=== PATIENT | male | born 1945 | race Hispanic/Latino ===

== ENCOUNTER 2017-01-24 02:53 | Inpatient (IN) | payer MEDICARE ==
[2017-01-24] MEDS ORDERED: BABY ASPIRIN ONE (03:00)
[2017-01-24] MEDS ORDERED: MORPHINE IV ONE (03:11)
[2017-01-24] MEDS ORDERED: NACL 0.9% 1000 ML 1,000 ML IV ONE (03:11)
[2017-01-24] MEDS ORDERED: HEPARIN 10,000 UNITS/10 ML IV ONE (03:11)
[2017-01-24] MEDS ORDERED: PLAVIX PO ONE (03:14)
[2017-01-24 03:21] LABS: INR 0.97 (0.87-1.13)
[2017-01-24 03:22] LABS: Partial Thromboplastin Time 24.9 Sec. (24.2-36.6)
[2017-01-24 03:25] LABS: Hematocrit 41.1 % (35.5-45.6); Mean Corpuscular HGB Conc 34 % (32-34); Mean Corpuscular Hemoglobin 30 pg (28-32); Mean Corpuscular Volume 87 fl (84-94); Platelet Count 290 K/mm3 (140-440); Red Blood Count 4.75 M/mm3 (3.65-5.03); Red Cell Distribution Width 14.6 % (13.2-15.2)
[2017-01-24 03:26] LABS: White Blood Count 21.4 K/mm3 (4.5-11.0)
[2017-01-24] MEDS ORDERED: XYLOCAINE 2% INFILTRATI ONE (03:33)
[2017-01-24] MEDS ORDERED: CALAN ONE (03:33)
[2017-01-24] MEDS ORDERED: NITROGLYCERIN SYRINGE 3 ML ONE (03:33)
[2017-01-24] MEDS ORDERED: HEPARIN/NS 5000 UNIT/500ML(CATH LAB) 1,000 ML IR ONE (03:33)
[2017-01-24] MEDS ORDERED: HEPARIN 10,000 UNITS/10 ML ONE ×2 (03:33→04:45)
[2017-01-24] MEDS ORDERED: AGGRASTAT DRIP (12.5 MG/250 ML) 0 MCG/0 ML BAG IV ONE (03:34)
[2017-01-24] MEDS ORDERED: ATROPINE 0.1% (CARDIAC) ONE (03:34)
[2017-01-24] MEDS ORDERED: VERSED ONE (03:34)
[2017-01-24] MEDS ORDERED: NACL 0.9% 1000 ML 1,000 ML ONE (03:34)
[2017-01-24] MEDS: SUBLIMAZE ONE ×2 (03:51→04:17)
[2017-01-24] MEDS ORDERED: INTROPIN DRIP 800 MG/D5W 250 ML 800 MG/250 ML BAG IV ONE (04:07)
--- NOTE | 2017-01-24 04:10 | Emergency Department Report ---
ED Chest Pain HPI - General Chief Complaint: Chest Pain Stated Complaint: CHEST PAIN Time Seen by Provider: 01/24/17 02:57 Source: patient, EMS Mode of arrival: Stretcher Limitations: No Limitations - History of Present Illness Initial Comments: Patient is a 71-year-old male who presents with chest pain patient states that chest pain started 45 minutes ago. He states that it's a pressure type pain located in left side of his chest it is severe at 10 out 10 and it radiates to his left arm into his jaw. Patient states that he was sitting down when the chest pain started. Patient is also slightly short of breath as well. Patient states that this chest pain is similar to his heart attacks in the past. Patient denies nausea or vomiting. Patient states that he has not taken his aspirin for about 1 week. But he has been taking his Plavix. Patient does not have any other symptoms other than the chest pain. Severity scale (0 -10): 8 - Related Data Home Medications Medication Instructions Recorded Confirmed Last Taken Ondansetron [Zofran Odt] 4 mg PO QDAY 12/06/16 12/06/16 12/05/16 Previous Rx's Medication Instructions Recorded Last Taken Type Aspirin EC [Aspirin Enteric Coated 81 mg PO QDAY #30 tablet. 12/15/16 Unknown Rx TAB] AtorvaSTATin [Lipitor] 40 mg PO QHS #30 tablet 12/15/16 Unknown Rx Clopidogrel [Plavix] 75 mg PO QDAY #30 tablet 12/15/16 Unknown Rx Furosemide [Lasix] 20 mg PO QDAY #30 tablet 12/15/16 Unknown Rx Losartan [Cozaar] 100 mg PO QDAY 30 Days 12/15/16 Unknown Rx Metoprolol [Lopressor TAB] 50 mg PO TID 30 Days 12/15/16 Unknown Rx Spironolactone [Aldactone] 25 mg PO QDAY #30 tablet 12/15/16 Unknown Rx amLODIPine [Norvasc] 10 mg PO DAILY #30 tablet 12/15/16 Unknown Rx oxyCODONE /ACETAMINOPHEN [Percocet 1 tab PO Q6HR PRN #20 tablet 12/15/16 Unknown Rx 5/325] Allergies Allergy/AdvReac Type Severity Reaction Status Date / Time No Known Allergies Allergy Verified 12/06/16 04:24 Heart Score - HEART Score History: Highly suspicious EKG: Significant ST-depression Age: > 65 Risk factors: > 3 risk factors or hx of atherosclerotic disease Troponin: 1-3x normal limit HEART Score: 9 ED Review of Systems ROS: Stated complaint: CHEST PAIN Other details as noted in HPI Constitutional: denies: chills, fever Eyes: denies: eye pain, eye discharge, vision change ENT: denies: ear pain, throat pain Respiratory: shortness of breath. denies: cough, wheezing Cardiovascular: chest pain Endocrine: no symptoms reported Gastrointestinal: denies: abdominal pain, nausea, diarrhea Genitourinary: denies: urgency, dysuria Musculoskeletal: denies: back pain, joint swelling, arthralgia Skin: denies: rash, lesions Neurological: denies: headache, weakness, paresthesias Psychiatric: denies: anxiety, depression Hematological/Lymphatic: denies: easy bleeding, easy bruising ED Past Medical Hx - Past Medical History Previous Medical History?: Yes Hx Hypertension: Yes Hx COPD: Yes Hx HIV: No - Surgical History Past Surgical History?: Yes Additional Surgical History: colon surgery 3-4 weeks ago per pt. - Social History Smoking Status: Former Smoker Substance Use Type: Marijuana - Medications Home Medications: Home Medications Medication Instructions Recorded Confirmed Last Taken Type Ondansetron [Zofran Odt] 4 mg PO QDAY 12/06/16 12/06/16 12/05/16 History Aspirin EC [Aspirin Enteric Coated 81 mg PO QDAY #30 tablet. 12/15/16 Unknown Rx TAB] AtorvaSTATin [Lipitor] 40 mg PO QHS #30 tablet 12/15/16 Unknown Rx Clopidogrel [Plavix] 75 mg PO QDAY #30 tablet 12/15/16 Unknown Rx Furosemide [Lasix] 20 mg PO QDAY #30 tablet 12/15/16 Unknown Rx Losartan [Cozaar] 100 mg PO QDAY 30 Days 12/15/16 Unknown Rx Metoprolol [Lopressor TAB] 50 mg PO TID 30 Days 12/15/16 Unknown Rx Spironolactone [Aldactone] 25 mg PO QDAY #30 tablet 12/15/16 Unknown Rx amLODIPine [Norvasc] 10 mg PO DAILY #30 tablet 12/15/16 Unknown Rx oxyCODONE /ACETAMINOPHEN [Percocet 1 tab PO Q6HR PRN #20 tablet 12/15/16 Unknown Rx 5/325] ED Physical Exam - General Limitations: No Limitations General appearance: in distress - Head Head exam: Present: atraumatic, normocephalic - Eye Eye exam: Present: normal appearance - ENT ENT exam: Present: mucous membranes moist - Neck Neck exam: Present: normal inspection - Respiratory Respiratory exam: Present: normal lung sounds bilaterally. Absent: respiratory distress - Cardiovascular Cardiovascular Exam: Present: systolic murmur, other (diminished heart sounds diminished heart sounds) - GI/Abdominal GI/Abdominal exam: Present: soft - Rectal Rectal exam: Present: deferred - Extremities Exam Extremities exam: Present: normal inspection - Neurological Exam Neurological exam: Present: alert, oriented X3, CN II-XII intact - Psychiatric Psychiatric exam: Present: normal affect - Skin Skin exam: Present: warm, dry ED Course Vital Signs 01/24/17 01/24/17 01/24/17 03:09 03:17 03:55 Temperature 98.8 F 98.4 F Pulse Rate 71 Respiratory 18 18 20 Rate Blood Pressure 133/61 O2 Sat by Pulse 99 99 Oximetry - Reevaluation(s) Reevaluation #1: 01/24/17 03:14 Evaluated patient water morphine for his severe chest pain I will also give IV heparin and lobe patient with Plavix. - Consultations Consultation #1: 01/24/17 04:15 Discussed with city carrier assistant micro paleontologist Dr. Stroud patient's EKG shows significant ST segment elevation and needs V4 V5 and V6 and ST depressions and ST depressions in leads 2 and 3 ZHENG score - Zheng Score Age > 65: (1) Yes Aspirin use within the Past 7 Days: (1) Yes 3 or more CAD Risk Factors: (1) Yes 2 or more Angina events in past 24 hrs: (0) No Known CAD with more than 50% Stenosis: (1) Yes Elevated Cardiac Markers: (0) No ST Deviation Greater than 0.5mm: (1) Yes ZHENG Score: 5 ED Medical Decision Making - Lab Data Result diagrams: 01/24/17 03:11 01/24/17 03:11 Lab Results 01/24/17 01/24/17 01/24/17 Range/Units 02:55 03:11 03:11 WBC 21.4 H (4.5-11.0) K/mm3 RBC 4.75 (3.65-5.03) M/mm3 Hgb 14.0 (11.8-15.2) gm/dl Hct 41.1 (35.5-45.6) % MCV 87 (84-94) fl MCH 30 (28-32) pg MCHC 34 (32-34) % RDW 14.6 (13.2-15.2) % Plt Count 290 (140-440) K/mm3 PT 12.8 (12.2-14.9) Sec. INR 0.97 (0.87-1.13) APTT 24.9 (24.2-36.6) Sec. Blood Type B POSITIVE Antibody Screen Negative - EKG Data -: EKG Interpreted by Me - Medical Decision Making Chief medical diagnosis STEMI Differential diagnosis: Non-STEMI, Unstable angina Well CBC, CMP, troponin, plavix and heparin Patient is having an STEMI patient has a life-threatening condition he will require IV heparin. Discussed with city carrier assistant Critical Care Time: Yes Critical care time in (mins) excluding proc time.: 30 Critical care attestation.: If time is entered above; I have spent that time in minutes in the direct care of this critically ill patient, excluding procedure time. I have spent 20 minutes at patient's bedside I have spent 5 minutes with business travel consultant I have spent 5 minutes looking over patient's old medical records ED Disposition Clinical Impression: STEMI (ST elevation myocardial infarction) Qualifiers: Involved coronary artery: unspecified coronary artery Qualified Code(s): I21.3 - ST elevation (STEMI) myocardial infarction of unspecified site Chest pain Qualifiers: Chest pain type: chest pain due to myocardial ischemia Ischemic chest pain type : unstable angina pectoris Qualified Code(s): I20.0 - Unstable angina Disposition: DC-09 OP ADMIT IP TO THIS HOSP Is pt being admited?: Yes Does the pt Need Aspirin: No (pt already got aspirin by EMS) Condition: Stable
[2017-01-24 04:25] LABS: Creatine Kinase MB 6.4 ng/mL (0.0-4.0)
[2017-01-24 04:26] LABS: BUN/Creatinine Ratio 19.33; Calcium 8.9 mg/dL (8.4-10.2); Chloride 95.6 mmol/L (98-107); Potassium 4.1 mmol/L (3.6-5.0)
[2017-01-24] MEDS ORDERED: ALUM-MAG HYDROX-SIMETH 200-200-20MG/5ML ONE (04:26)
[2017-01-24] MEDS ORDERED: EFFIENT PO ONE (04:26)
[2017-01-24] MEDS ORDERED: ZOFRAN ONE (04:37)
[2017-01-24 05:38] LABS: Anisocytosis Few; Basophils % (Manual) 0 % (0.0-1.8); Blastocytes % (Manual) 0 %; Eosinophils % (Manual) 0 % (0.0-4.3); Giant Platelets Rare
[2017-01-24 05:39] LABS: Diff Status Complete
[2017-01-24 06:07] LABS: Creatine Kinase MB 111.2 ng/mL (0.0-4.0)
--- NOTE | 2017-01-24 08:32 | History and Physical Report ---
REFERRING PHYSICIAN: ER physician. REASON FOR ADMISSION: STEMI. HISTORY OF PRESENT ILLNESS: The patient is a 71-year-old gentleman with multiple complex medical problems including COPD, hypertension, multiple MIs, and PCIs, who presents with 1 hour of chest pain. EKG reveals an anterolateral ST elevation. He is diaphoretic. He also has chronic pain, chronic mesenteric ischemia, and peripheral vascular disease. STEMI protocol was initiated. No bleeding, mild diaphoresis, no rash or blurred vision, no stroke-like symptoms. No cold or heat intolerance. No abdominal pain. PAST MEDICAL HISTORY: Multiple MIs. Most recent catheterization in [place] 3 years ago, history of cardiomyopathy with ejection fraction of approximately 40%, stress MPI 12/12/2016, no ischemia, history of acute kidney injury, history of pneumonia, and history of chronic mesenteric ischemia. The patient underwent superior mesenteric arteries balloon angioplasties on 10/05/2016. Also, stent in the right iliac artery 10/05/2016, also with hypertension, hyperlipidemia, and COPD. SOCIAL HISTORY: Smokes marijuana on a daily basis. PHYSICAL EXAMINATION: VITAL SIGNS: Blood pressure is 140/80, he is afebrile. Tele reveals sinus rhythm. O2 sat is 98% on 2 liters. GENERAL: This is a middle-aged gentleman in no apparent distress. Alert and oriented x 3. HEENT: Sclerae are anicteric. NECK: Supple. No mass or JVD. CHEST: Clear to auscultation bilaterally. Good air movement. CARDIOVASCULAR: Regular S1, S2. ABDOMEN: Soft, nontender, and nondistended. Normoactive bowel sounds in 4 quadrants. No mass or bruits. EXTREMITIES: No cyanosis, clubbing or edema. Good peripheral pulses. SKIN: Intact. No rashes. DATA: EKG shows anterolateral ST elevation with inferior reciprocal changes, sinus rhythm. This is new compared to the previous EKG. ASSESSMENT AND PLAN: In summary, the patient is a 71-year-old gentleman who presents with 1 hour of chest pain and findings consistent with anterolateral ST elevation myocardial infarction. ST-segment elevation myocardial infarction protocol initiated. The patient has been loaded with aspirin, Plavix, and heparin. Further plans continues on catheterization results. JOB# [id number] SBM/NTS
[2017-01-24 09:27] LABS: Creatine Kinase MB 190.1 ng/mL (0.0-4.0)
--- NOTE | 2017-01-24 09:57 | Progress Note ---
Assessment and Plan Assessment: Anterolateral STEMI - s/p PCI of LAD on 01/24/2017 CAD, s/p multiple MIs and PCIs - in [place] per pt report CMP - EF 35-40% on echo 12/06/2016 Leukocytosis - pt afebrile; cont to trend. Sinus bradycardia HTN HLP COPD Chronic pain Chronic mesenteric ischemia - s/p balloon angioplasty and stent of superior mesenteric artery on 10/05/2016 PVD - s/p balloon angioplasty and stent of right iliac artery on 10/05/2016 Former smoker Plan: Await echo. Cont DAPT with ASA and effient. Cont statin. No BB at this time in setting of intermittent asymptomatic sinus bradycardia. Resume home losartan. Consider resuming home lasix and aldactone in AM if renal indices WNL. Repeat EKG in AM. Cont care in ICU. Consult eviction specialist for assistance in management of medical care. Assessment and plan reviewed with pt at bedside. The patient has been seen in conjunction with Dr. ALEXIA Stroud who agrees with the assessment and plan of care. Subjective Date of service: 01/24/17 Principal diagnosis: anterolateral STEMI Interval history: Pt resting comfortably in bed, denies any cardiac complaints. VSS. S/p LHC with PCI via right femoral artery for STEMI earlier this AM. C/o right groin LHC site pain. Sheath pulled this AM, no evidence of bleeding or hematoma, all pulses intact. Post-PCI ECG shows resolving ST elevations in anterolateral leads. Objective Last Vital Signs Temp 98.8 F 01/24/17 05:47 Pulse 61 01/24/17 08:51 Resp 18 01/24/17 08:51 BP 143/64 01/24/17 08:51 Pulse Ox 98 01/24/17 08:51 - Physical Examination General: Appears Well, No Apparent Distress HEENT: Positive: PERRL, Sinus Tenderness, Mucus Membranes Moist Neck: Positive: neck supple, trachea midline Cardiac: Positive: Reg Rate and Rhythm, S1/S2 Lungs: Positive: clear to auscultation Neuro: Positive: Grossly Intact, Cranial Nerve 2-12 Intact Abdomen: Positive: Unremarkable, Soft, Active Bowel Sounds Skin: Positive: Clear Musculoskeletal: No Fluid Collection, No Pain, Normal Range of Motion Extremities: Present: upper extr. pulses, lower extr. pulses. Absent: edema - Labs and Meds Cardiac Enzymes 01/24/17 01/24/17 Range/Units 05:29 08:48 CK-MB (CK-2) 111.2 H 190.1 H (0.0-4.0) ng/mL - Imaging and Cardiology EKG: image reviewed Pharmacologic stress test: report reviewed (12/12/16: no significant ischemia) Echo: pending, report reviewed (EF 35-40% on echo 12/06/2016) Cardiac cath: report reviewed - Telemetry EKG Rhythm: Sinus Rhythm - EKG Sinus rhythms and dysrhythmias: sinus rhythm
[2017-01-24] MEDS: ECOTRIN PO SCH (10:05)
[2017-01-24] MEDS ORDERED: PERCOCET 5/325 PO PRN (10:08)
[2017-01-24] MEDS ORDERED: ZOFRAN IV PRN (10:11)
--- NOTE | 2017-01-24 10:41 | Cardiac Catherization Report ---
PRIMARY ELEMENTARY SCHOOL SOCIAL WORKER: Dr. Mark. INDICATION FOR PROCEDURE: STEMI. PRESENTATION: The patient is a 71-year-old gentleman with multiple previous MIs and multiple PCIs, presents with 1 hour of chest pain and found to have anterolateral ST elevation referred for urgent left heart catheterization. STEMI protocol initiated. The patient loaded with Plavix, aspirin and heparin. PROCEDURE IN DETAIL: The patient was brought to the dental laboratory technician apprentice in urgent fashion, prepped and draped in sterile fashion. An 8 mL of 2% lidocaine used to anesthetize the right groin. A standard 6-Faroese sheath used to cannulate the right common femoral artery via modified Seldinger technique. All exchanges performed to exchange a J-tip guidewire. JR4 catheter was used to cross the aortic valve under fluoroscopic guidance. Left ventriculography performed in 30 GRIMES and 30 ESDRAS projections via hand injections, catheter flushed. Manual pullback performed with continuous pressure monitoring. Catheter used to engage the right coronary. No dampening or ventricularization. Cineangiography performed in all projections. Next, catheter exchanged for an EBU 3.75 guide used to engage left main and angiography performed. Left ventriculography revealed anterolateral hypokinesis, estimated ejection fraction of 50% to 55%. No evidence of aortic stenosis. CORONARY ANATOMY: This is a right dominant system. Right coronary is a small to moderate sized vessel, courses AV groove, distally bifurcates in the posterior and posterolateral branch, a long stent in the proximal and mid right coronary, patent 50% to 60% distal right coronary. ZHENG 3 flow throughout. Left main without significant disease, bifurcates left anterior descending and left circumflex. Left circumflex is a small vessel. Scattered luminal irregularities 50% to 60% mid segment. LAD is a moderate sized vessel, courses anterior intergroove, wraps around the apex. There is 100% acute thrombotic occlusion of a first diagonal. LAD is a small vessel, but no significant disease is identified throughout. At this point, we turned our attention to PCI. Abnormal ACT confirmed. We wired the lesion with a Prowater wire without difficulty predilated lesion with 2.0 x 12 balloon. ZHENG 3 flow returned, small vessel, multiple episodes of nitro given. It is a long lesion, we used a 2.25 x 26 Resolute stent at 9 STEPHANIE for 20 seconds. Excellent angiographic result, ZHENG 3 flow, mild spasm just distal to the stent. We used intracoronary nitroglycerin, this resolved, excellent final result. The patient is chest pain free. The catheter was removed from the body over a wire. CONCLUSIONS: Acute atherothrombotic occlusion of the first diagonal, status post primary percutaneous coronary intervention with placement of drug-eluting stent, Resolute 2.25 x 26 with excellent final angiographic result. Vessel too small for IVUS. Too small and tortuous for IVUS, but good result and clinically significant improved. Left anterior descending without significant disease. Left main without significant disease. Left circumflex with mild 50% to 60% mid segment disease. Right coronary with a long stent in the proximal and mid, which is patent with 50% to 60% stenosis distal right coronary. Next, left revealed anterior lateral hypokinesis, estimated ejection fraction of 50% to 55%. No evidence of aortic stenosis. At this point, the patient is clinically stable. Standard Groin care. Sheath to be pulled once ACT less than 170. Bed rest for 6 hours. The patient was loaded with aspirin and Effient. The patient needs to quit smoking marijuana. Further plans contingent on hospital course. The patient will be transferred in stable condition to ICU. JOB# [id number] ROSIE/DENNY
--- NOTE | 2017-01-24 13:53 | Admit Criteria Form ---
Admission Criteria Documentation: MYOCARDIAL INFARCTION Clinical Indications for Admission to Inpatient Care (Place 'X' for any and all applicable criteria): Admission is indicated for 1 or more of the following (1)(2)(3)(4): [X]I. Acute AK [ ]II. Contraindications and/or Inappropriate clinical situations for Observational Care in patients with Myocardial Infarction, when ANY ONE of the following is required: [ ]a) Patient with High risk of cardiac embolism (e.g, patients with previous cardiac embolism, LVEF < 40%, age >75 and patients with prosthetic valve) 18 [ ]b) Patient with Moderate risk including DM patient, CAD and patient aged 65-75 18 [ ]c) Patient with any change in cardiac biomarker especially troponin should be managed as high risk in an inpatient setting 19 [ ]d) Physician judgement irrespective of ECG and other diagnostic findings 20 [ ]III.General contraindications and/or Inappropriate clinical situations for Observational Care in patients with Myocardial Infarction, when ANY ONE of the following is required: [ ]a) Prediction of prolongation of LOS based on ANY ONE of the following may be considered as a contraindication for observational care 2, 3, 4, 5, 6, 7, 8, 9, 10, 11 [ ]i) Age > 65 yrs. [ ]ii) Patient arriving by ambulance [ ]iii) Patient with high acuity [ ]iv) Patient requiring vital sign monitoring [ ]v) Patient on IV medication [ ]b) Systolic blood pressures greater than or equal to 180mmHg 3,12 [ ]c) Patient with altered mental status including delirium and other alteration of consciousness, (3) [ ]d) Patient whose discharge disposition will be to a custodial home or rehabilitation home should not be managed in Emergency Department Observation Unit. CMS rule requires 3 days hospital stay before such placement. 3,13 [ ]e) Patient with failure to thrive due to broad array of etiologies 3 ,16,17 [ ]f) Inability to ambulate 3,14 Extended stay beyond goal length of stay may be needed for (1)(18)(20)(24)(25): [ ]a) Hemodynamic instability, persisting symptoms after intensive medical management, or recurring severe, prolonged symptoms [ ]b) Intravascular procedural complications such as acute vessel closure, stent thrombosis, stent malposition, or vessel dissection (26)(27)(28) [ ]c) Extravascular procedural complications such as retroperitoneal hematoma , pericardial effusion, or cardiac tamponade [ ]d) Entry site complications causing bleeding, hematoma or distal ischemia and requiring ongoing monitoring, surgical repair or surgical thrombectomy. Dangerous arrhythmia [ ]e) Complicated percutaneous coronary intervention (e.g., unsuccessful percutaneous coronary intervention or percutaneous coronary intervention of non- yocha dehe vessel) [ ]f) Urgent or emergent surgery for complications of AK (e.g., ventricular rupture, valvular insufficiency) [ ]g) Surgical revascularization via coronary artery bypass graft [ ]h) Heart failure (e.g., pulmonary edema) [ ]i) Unstable pulmonary comorbidities, including COPD or pneumonia (31) [ ]j) Acute renal failure The original [employer] content created by [email or web address] has been revised. The portions of the content which have been revised are identified through the use of italic text or in bold, and [employer] has neither reviewed nor approved the modified material. All other unmodified content is copyright [facility] Please see references footnoted in the original [facility] [facility] edition 2016 Admission Criteria Met: Yes
[2017-01-24] MEDS: HEPARIN SUB-Q SCH ×2 (14:06→23:00)
--- NOTE | 2017-01-24 14:12 | Consultation ---
History of Present Illness - Reason for Consult Consult date: 01/24/17 STEMI, post ICU care - History of Present Illness 71 y/o male, smoker, found to have stemi. Transitioned to ICU for further monitoring. Past History Past Medical History: CAD, COPD, hyperlipidemia Past Surgical History: No surgical history Social history: smoking Family history: CAD Medications and Allergies Allergies Allergy/AdvReac Type Severity Reaction Status Date / Time No Known Allergies Allergy Verified 12/06/16 04:24 Home Medications Medication Instructions Recorded Confirmed Last Taken Type Ondansetron [Zofran Odt] 4 mg PO QDAY 12/06/16 01/24/17 12/05/16 History Aspirin EC [Aspirin Enteric Coated 81 mg PO QDAY #30 tablet. 12/15/16 Unknown Rx TAB] AtorvaSTATin [Lipitor] 40 mg PO QHS #30 tablet 12/15/16 01/24/17 Unknown Rx Clopidogrel [Plavix] 75 mg PO QDAY #30 tablet 12/15/16 01/24/17 01/23/17 Rx Furosemide [Lasix] 20 mg PO QDAY #30 tablet 12/15/16 01/24/17 01/23/17 Rx Losartan [Cozaar] 100 mg PO QDAY 30 Days 12/15/16 01/24/17 01/23/17 Rx Metoprolol [Lopressor TAB] 50 mg PO TID 30 Days 12/15/16 01/24/17 01/23/17 Rx Spironolactone [Aldactone] 25 mg PO QDAY #30 tablet 12/15/16 01/24/17 01/23/17 Rx amLODIPine [Norvasc] 10 mg PO DAILY #30 tablet 12/15/16 01/24/17 01/23/17 Rx oxyCODONE /ACETAMINOPHEN [Percocet 1 tab PO Q6HR PRN #20 tablet 12/15/16 Unknown Rx 5/325] Active Meds: Active Medications Aspirin (Ecotrin) 325 mg PO QDAY [facility] Last Admin: 01/24/17 10:05 Dose: 325 mg Atorvastatin Calcium (Lipitor) 80 mg PO QHS [facility] Heparin Sodium (Porcine) (Heparin) 5,000 unit SUB-Q Q8HR [facility] Sodium Chloride (Nacl 0.9% 1000 Ml) 1,000 mls @ 42 mls/hr IV ONCE ONE Stop: 01/25/17 02:59 Last Admin: 01/24/17 10:00 Dose: Not Given Losartan Potassium (Cozaar) 50 mg PO QDAY SUDARSHAN Ondansetron HCl (Zofran) 4 mg IV Q4H PRN PRN Reason: Nausea And Vomiting Oxycodone/Acetaminophen (Percocet 5/325) 1 tab PO Q6HR PRN PRN Reason: Pain, Moderate (4-6) Prasugrel (Effient) 10 mg PO QDAY [facility] Review of Systems All systems: negative Exam - Constitutional Vitals: Temp Pulse Resp BP Pulse Ox 97.8 F 62 21 160/75 95 01/24/17 12:00 01/24/17 12:30 01/24/17 12:30 01/24/17 12:30 01/24/17 12:30 Results - Labs CBC & Chem 7: 01/25/17 04:00 01/25/17 04:00 Labs: Abnormal lab results 01/24/17 01/24/17 Range/Units 05:29 08:48 Total Creatine Kinase 1537 H 1834 H (55-170) units/L CK-MB (CK-2) 111.2 H 190.1 H (0.0-4.0) ng/mL CK-MB (CK-2) Rel Index 7.2 H 10.3 H (0-4) Troponin T 5.770 H* D 8.100 H* D (0.00-0.029) ng/mL Assessment and Plan 71 y/o male with STEMI 1. ASA, statin, plavix, Beta Mckayla 2. Follow cards recs 3. Monitor for chest pain, repeat EKG if needed 4. Will continue to monitor
[2017-01-24] MEDS: COZAAR PO SCH (22:59)
[2017-01-24] MEDS: NORVASC PO SCH (23:00)
[2017-01-24] MEDS ORDERED: COREG PO SCH (23:00)
[2017-01-25 04:20] LABS: Basophils % (Auto) 1.4 % (0.0-1.8); Eosinophils % (Auto) 2.1 % (0.0-4.3); Hematocrit 35.7 % (35.5-45.6); Hemoglobin 12.1 gm/dl (11.8-15.2); Mean Corpuscular HGB Conc 34 % (32-34); Mean Corpuscular Hemoglobin 30 pg (28-32); Mean Corpuscular Volume 89 fl (84-94); Platelet Count 219 K/mm3 (140-440); Red Blood Count 4.01 M/mm3 (3.65-5.03); Red Cell Distribution Width 14.7 % (13.2-15.2)
[2017-01-25 04:35] LABS: Creatine Kinase MB 51.6 ng/mL (0.0-4.0)
[2017-01-25 04:37] LABS: Anion Gap 17 mmol/L; BUN/Creatinine Ratio 18.18; Blood Urea Nitrogen 20 mg/dL (9-20); Carbon Dioxide 23 mmol/L (22-30); Chloride 104.2 mmol/L (98-107); Creatine Kinase 691 units/L (55-170); Glucose 92 mg/dL (75-100); Potassium 4.1 mmol/L (3.6-5.0); Sodium 140 mmol/L (137-145)
[2017-01-25] MEDS: HEPARIN SUB-Q SCH ×3 (05:14→22:00)
[2017-01-25] MEDS: EFFIENT PO SCH ×2 (05:14→10:50)
--- NOTE | 2017-01-25 09:09 | XRay Report ---
PORTABLE CHEST INDICATION: Post PCI. COMPARISON: 12/10/2016 FINDINGS: Portable, frontal chest radiograph demonstrate improving CHF/bibasilar haziness with right greater than left pleural fluid now remaining. No cephalization. Normal cardiomediastinal silhouette. EKG leads. Stable demineralized bones. CONCLUSION: Improving CHF/pleural effusions, as described. Thank you for the opportunity to participate in this patient's care.
[2017-01-25] MEDS ORDERED: PROVENTIL IH PRN (09:25)
--- NOTE | 2017-01-25 09:28 | Progress Note ---
Assessment and Plan Assessment: Anterolateral STEMI - s/p PCI of LAD on 01/24/2017 CAD, s/p multiple MIs and PCIs - in [place] per pt report CMP - EF 35-40% on echo 12/06/2016 Leukocytosis - pt afebrile; cont to trend. Sinus bradycardia HTN HLP COPD - per pulmonary. Chronic pain Chronic mesenteric ischemia - s/p balloon angioplasty and stent of superior mesenteric artery on 10/05/2016 PVD - s/p balloon angioplasty and stent of right iliac artery on 10/05/2016 Former smoker Plan: Echo reviewed - EF 35-40%. Cont DAPT with ASA and effient. Cont statin. No BB at this time in setting of intermittent asymptomatic sinus bradycardia. Cont losartan. Resume home lasix and aldactone. Currently stable cardiac status. Pt may tx out of ICU to telemetry. Assessment and plan reviewed with pt at bedside. The patient has been seen in conjunction with Dr. ALEXIA Stroud who agrees with the assessment and plan of care. Subjective Date of service: 01/25/17 Principal diagnosis: anterolateral STEMI Interval history: Pt resting comfortably in bed, denies any cardiac complaints. VSS. C/o cough and having to "intentionally breathe" too often, O2 sats WNL, on O2 via NC. Objective Last Vital Signs Temp 98.4 F 01/25/17 08:00 Pulse 63 01/25/17 09:00 Resp 26 H 01/25/17 09:00 BP 142/73 01/25/17 09:00 Pulse Ox 98 01/25/17 09:00 - Physical Examination General: Appears Well, No Apparent Distress HEENT: Positive: PERRL, Sinus Tenderness, Mucus Membranes Moist Neck: Positive: neck supple, trachea midline Cardiac: Positive: Reg Rate and Rhythm, S1/S2 Lungs: Positive: Decreased Breath Sounds, Oxygen Neuro: Positive: Grossly Intact, Cranial Nerve 2-12 Intact Abdomen: Positive: Unremarkable, Soft, Active Bowel Sounds Skin: Positive: Clear Musculoskeletal: No Fluid Collection, No Pain, Normal Range of Motion Extremities: Present: upper extr. pulses, lower extr. pulses. Absent: edema - Labs and Meds Cardiac Enzymes 01/24/17 01/25/17 Range/Units 08:48 04:00 CK-MB (CK-2) 190.1 H 51.6 H (0.0-4.0) ng/mL CBC 01/25/17 Range/Units 04:00 WBC 14.0 H (4.5-11.0) K/mm3 RBC 4.01 (3.65-5.03) M/mm3 Hgb 12.1 (11.8-15.2) gm/dl Hct 35.7 (35.5-45.6) % Plt Count 219 (140-440) K/mm3 Lymph # 2.9 (1.2-5.4) K/mm3 [place] # 0.8 (0.0-0.8) K/mm3 Eos # 0.3 (0.0-0.4) K/mm3 Baso # 0.2 H (0.0-0.1) K/mm3 Comprehensive Metabolic Panel 01/25/17 Range/Units 04:00 Sodium 140 (137-145) mmol/L Potassium 4.1 (3.6-5.0) mmol/L Chloride 104.2 (98-107) mmol/L Carbon Dioxide 23 (22-30) mmol/L BUN 20 (9-20) mg/dL Creatinine 1.1 (0.8-1.5) mg/dL Glucose 92 (75-100) mg/dL Calcium 8.0 L (8.4-10.2) mg/dL - Imaging and Cardiology EKG: image reviewed Echo: report reviewed (EF 35-40%) Cardiac cath: report reviewed - Telemetry EKG Rhythm: Sinus Rhythm - EKG Sinus rhythms and dysrhythmias: sinus rhythm
[2017-01-25] MEDS ORDERED: ALDACTONE PO SCH (10:00)
[2017-01-25] MEDS ORDERED: NORVASC PO SCH (10:00)
[2017-01-25] MEDS ORDERED: COZAAR PO SCH ×2 (10:00)
[2017-01-25] MEDS ORDERED: LASIX PO SCH (10:00)
[2017-01-25] MEDS: NORVASC PO SCH (10:47)
[2017-01-25] MEDS: COZAAR PO SCH (10:48)
[2017-01-25] MEDS: ALDACTONE PO SCH (10:48)
[2017-01-25] MEDS: LASIX PO SCH (10:48)
[2017-01-25] MEDS: ECOTRIN PO SCH (10:49)
--- NOTE | 2017-01-25 11:48 | Progress Note ---
Assessment and Plan 71 y/o male with STEMI 1. Depressed EF, would watch fluid status, especially with underlining COPD 2. Will add pulmicort and brovana nebs 3. Patient can fill his scripts for COPD at discharge 4. Wean FiO2 as tolerated for sats >88% 5. Agree with floor transfer Subjective Date of service: 01/25/17 Principal diagnosis: anterolateral STEMI Interval history: This am states that he has to put too much effort into breathing. Admits to having several scripts for COPD but did not fill them. Objective - Constitutional Vitals: Vital Signs - 12hr 01/24/17 01/24/17 01/25/17 23:51 23:59 00:00 Temperature 98.8 F Pulse Rate 68 66 Respiratory 17 17 Rate Blood Pressure 188/89 188/89 O2 Sat by Pulse 95 95 Oximetry 01/25/17 01/25/17 01/25/17 00:01 00:11 00:21 Temperature Pulse Rate 65 63 62 Respiratory 17 17 17 Rate Blood Pressure 132/64 132/64 132/64 O2 Sat by Pulse 93 96 96 Oximetry 01/25/17 01/25/17 01/25/17 00:31 00:41 00:51 Temperature Pulse Rate 59 L 59 L 58 L Respiratory 16 17 23 Rate Blood Pressure 132/64 132/64 132/64 O2 Sat by Pulse 96 96 98 Oximetry 01/25/17 01/25/17 01/25/17 01:00 01:11 01:21 Temperature Pulse Rate 60 62 65 Respiratory 16 17 15 Rate Blood Pressure 141/70 141/70 141/70 O2 Sat by Pulse 96 97 97 Oximetry 01/25/17 01/25/17 01/25/17 01:31 01:41 01:51 Temperature Pulse Rate 65 62 62 Respiratory 16 17 15 Rate Blood Pressure 141/70 141/70 141/70 O2 Sat by Pulse 97 96 96 Oximetry 01/25/17 01/25/17 01/25/17 02:00 02:11 02:21 Temperature Pulse Rate 54 L 61 64 Respiratory 18 17 18 Rate Blood Pressure 133/62 133/62 133/62 O2 Sat by Pulse 94 97 96 Oximetry 01/25/17 01/25/17 01/25/17 02:31 02:41 02:51 Temperature Pulse Rate 59 L 58 L 61 Respiratory 14 20 20 Rate Blood Pressure 133/62 133/62 133/62 O2 Sat by Pulse 96 95 95 Oximetry 01/25/17 01/25/17 01/25/17 03:00 03:11 03:21 Temperature Pulse Rate 53 L 61 59 L Respiratory 19 20 14 Rate Blood Pressure 132/65 132/65 132/65 O2 Sat by Pulse 93 94 95 Oximetry 01/25/17 01/25/17 01/25/17 03:31 03:41 03:51 Temperature Pulse Rate 56 L 60 63 Respiratory 18 19 18 Rate Blood Pressure 132/65 132/65 132/65 O2 Sat by Pulse 97 96 96 Oximetry 01/25/17 01/25/17 01/25/17 04:00 04:11 04:21 Temperature 98.2 F Pulse Rate 61 61 57 L Respiratory 22 18 18 Rate Blood Pressure 132/72 132/72 132/72 O2 Sat by Pulse 97 96 96 Oximetry 01/25/17 01/25/17 01/25/17 04:31 04:41 04:51 Temperature Pulse Rate 61 56 L 57 L Respiratory 19 19 14 Rate Blood Pressure 132/72 132/72 132/72 O2 Sat by Pulse 96 96 96 Oximetry 01/25/17 01/25/17 01/25/17 05:00 05:11 05:21 Temperature Pulse Rate 58 L 68 68 Respiratory 16 17 25 H Rate Blood Pressure 133/72 133/72 133/72 O2 Sat by Pulse 96 96 95 Oximetry 01/25/17 01/25/17 01/25/17 05:31 05:41 05:51 Temperature Pulse Rate 63 49 L 62 Respiratory 21 25 H 23 Rate Blood Pressure 133/72 133/72 133/72 O2 Sat by Pulse 94 94 95 Oximetry 01/25/17 01/25/17 01/25/17 06:00 06:11 06:21 Temperature Pulse Rate 63 59 L 58 L Respiratory 16 21 24 Rate Blood Pressure 142/71 142/71 142/71 O2 Sat by Pulse 94 96 94 Oximetry 01/25/17 01/25/17 01/25/17 06:31 06:41 06:51 Temperature Pulse Rate 61 60 67 Respiratory 14 16 17 Rate Blood Pressure 142/71 142/71 142/71 O2 Sat by Pulse 96 96 95 Oximetry 01/25/17 01/25/17 01/25/17 07:00 07:11 07:21 Temperature Pulse Rate 60 62 70 Respiratory 16 19 19 Rate Blood Pressure 135/69 135/69 135/69 O2 Sat by Pulse 95 93 95 Oximetry 01/25/17 01/25/17 01/25/17 07:31 07:41 07:51 Temperature Pulse Rate 72 58 L 66 Respiratory 30 H 15 23 Rate Blood Pressure 135/69 135/69 135/69 O2 Sat by Pulse 95 95 94 Oximetry 01/25/17 01/25/17 01/25/17 08:00 08:11 08:21 Temperature 98.4 F Pulse Rate 59 L 74 75 Respiratory 24 25 H 19 Rate Blood Pressure 144/69 144/69 144/69 O2 Sat by Pulse 95 95 94 Oximetry 01/25/17 01/25/17 01/25/17 08:31 08:41 08:51 Temperature Pulse Rate 60 74 63 Respiratory 18 21 24 Rate Blood Pressure 144/69 144/69 144/69 O2 Sat by Pulse 97 91 97 Oximetry 01/25/17 01/25/17 01/25/17 09:00 09:11 09:21 Temperature Pulse Rate 63 66 65 Respiratory 26 H 25 H 20 Rate Blood Pressure 142/73 142/73 142/73 O2 Sat by Pulse 98 96 97 Oximetry 01/25/17 01/25/17 01/25/17 09:31 09:41 09:51 Temperature Pulse Rate 60 61 64 Respiratory 20 24 29 H Rate Blood Pressure 142/73 142/73 142/73 O2 Sat by Pulse 98 96 96 Oximetry 01/25/17 01/25/17 01/25/17 10:00 10:11 10:21 Temperature Pulse Rate 64 63 61 Respiratory 25 H 24 24 Rate Blood Pressure 148/78 148/78 148/78 O2 Sat by Pulse 95 95 96 Oximetry 01/25/17 01/25/17 01/25/17 10:31 10:41 10:47 Temperature Pulse Rate 64 65 64 Respiratory 20 27 H Rate Blood Pressure 148/78 148/78 148/78 O2 Sat by Pulse 96 96 Oximetry 01/25/17 01/25/17 01/25/17 10:48 10:50 11:00 Temperature Pulse Rate 61 65 62 Respiratory 21 27 H Rate Blood Pressure 148/78 148/78 145/76 O2 Sat by Pulse 96 94 Oximetry 01/25/17 11:11 Temperature Pulse Rate 61 Respiratory 26 H Rate Blood Pressure 148/78 O2 Sat by Pulse 97 Oximetry General appearance: Present: no acute distress - EENT Eyes: PERRL, EOM intact ENT: hearing intact - Neck Neck: supple - Respiratory Respiratory effort: normal Respiratory: bilateral: wheezing (slight) - Breasts Breasts: deferred - Cardiovascular Rhythm: regular Heart Sounds: Present: S1 & S2 - Labs CBC & Chem 7: 01/25/17 04:00 01/25/17 04:00 Labs: Abnormal lab results 01/25/17 01/25/17 Range/Units 04:00 04:00 WBC 14.0 H (4.5-11.0) K/mm3 Baso # 0.2 H (0.0-0.1) K/mm3 Seg Neutrophils % 70.6 H (40.0-70.0) % Seg Neutrophils # 9.9 H (1.8-7.7) K/mm3 Calcium 8.0 L (8.4-10.2) mg/dL Total Creatine Kinase 691 H (55-170) units/L CK-MB (CK-2) 51.6 H (0.0-4.0) ng/mL CK-MB (CK-2) Rel Index 7.4 H (0-4) Troponin T 4.200 H* D (0.00-0.029) ng/mL
[2017-01-25] MEDS: BROVANA NEBU IH SCH ×2 (12:15→20:37)
[2017-01-25] MEDS: PULMICORT IH SCH ×2 (12:15→20:37)
[2017-01-26] MEDS: HEPARIN SUB-Q SCH ×3 (05:38→22:00)
[2017-01-26 06:51] LABS: Anion Gap 15 mmol/L; Blood Urea Nitrogen 21 mg/dL (9-20); Calcium 7.8 mg/dL (8.4-10.2); Carbon Dioxide 23 mmol/L (22-30); Chloride 103.7 mmol/L (98-107); Glucose 82 mg/dL (75-100); Potassium 3.7 mmol/L (3.6-5.0); Sodium 138 mmol/L (137-145)
[2017-01-26] MEDS: BROVANA NEBU IH SCH ×2 (08:17→20:58)
[2017-01-26] MEDS: PULMICORT IH SCH ×2 (08:17→20:58)
--- NOTE | 2017-01-26 08:25 | Progress Note ---
Assessment and Plan 71 y/o male with STEMI 1. Depressed EF, would watch fluid status, especially with underlining COPD 2. Will add pulmicort and brovana nebs 3. Patient can fill his scripts for COPD at discharge 4. Wean FiO2 as tolerated for sats >88% 5. Agree with discharge tomorrow Subjective Date of service: 01/26/17 Principal diagnosis: anterolateral STEMI Interval history: No acute events. Breathing better with diuresis. Tolerating neb treatments. Objective Vital Signs - 12hr 01/25/17 01/25/17 01/25/17 20:37 20:39 20:48 Temperature Pulse Rate Pulse Rate [ 75 82 Throughout] Respiratory Rate Respiratory 15 16 Rate [ Throughout] Blood Pressure O2 Sat by Pulse 98 Oximetry 01/25/17 01/26/17 01/26/17 22:00 00:32 04:54 Temperature 98.4 F 98.4 F Pulse Rate 63 76 81 Pulse Rate [ Throughout] Respiratory 20 18 Rate Respiratory Rate [ Throughout] Blood Pressure 137/63 145/73 O2 Sat by Pulse 94 99 Oximetry CBC and BMP: 01/25/17 04:00 01/26/17 05:57 ABG, PT/INR, D-dimer: PT/INR, D-dimer PT 12.8 Sec. (12.2-14.9) 01/24/17 03:11 INR 0.97 (0.87-1.13) 01/24/17 03:11 Abnormal lab findings: Abnormal Labs 01/24/17 01/24/17 01/25/17 05:29 08:48 04:00 WBC 14.0 H Baso # 0.2 H Seg Neutrophils % 70.6 H Seg Neutrophils # 9.9 H BUN Calcium Total Creatine Kinase 1537 H 1834 H CK-MB (CK-2) 111.2 H 190.1 H CK-MB (CK-2) Rel Index 7.2 H 10.3 H Troponin T 5.770 H* D 8.100 H* D 01/25/17 01/26/17 04:00 05:57 WBC Baso # Seg Neutrophils % Seg Neutrophils # BUN 21 H Calcium 8.0 L 7.8 L Total Creatine Kinase 691 H CK-MB (CK-2) 51.6 H CK-MB (CK-2) Rel Index 7.4 H Troponin T 4.200 H* D
[2017-01-26] MEDS: COZAAR PO SCH (09:53)
[2017-01-26] MEDS: EFFIENT PO SCH (09:53)
[2017-01-26] MEDS: NORVASC PO SCH (09:54)
[2017-01-26] MEDS: LASIX PO SCH (09:54)
[2017-01-26] MEDS: ECOTRIN PO SCH (09:54)
[2017-01-26] MEDS: ALDACTONE PO SCH (09:54)
--- NOTE | 2017-01-26 12:02 | Progress Note ---
Assessment and Plan Anterolateral STEMI - s/p PCI of LAD on 01/24/2017 CAD, s/p multiple MIs and PCIs - in [place] per pt report Acute on chronic systolic heart failure CMP - EF 35-40% on echo 12/06/2016 Leukocytosis - pt afebrile; cont to trend. Sinus bradycardia HTN HLP COPD - per pulmonary. Chronic pain Chronic mesenteric ischemia - s/p balloon angioplasty and stent of superior mesenteric artery on 10/05/2016 PVD - s/p balloon angioplasty and stent of right iliac artery on 10/05/2016 Former smoker Echo reviewed - EF 35-40%. Cont DAPT with ASA and effient. Cont statin. No BB at this time in setting of intermittent asymptomatic sinus bradycardia Chest x-ray yesterday showed improvement in the congestive heart failure. Overall he is doing better today. Increase activity and continue current management. If stable consider discharge tomorrow. - Patient Problems (1) STEMI (ST elevation myocardial infarction) Current Visit: Yes Status: Acute Qualifiers: Involved coronary artery: unspecified coronary artery Qualified Code(s): I21.3 - ST elevation (STEMI) myocardial infarction of unspecified site (2) Acute on chronic systolic CHF (congestive heart failure) Current Visit: No Status: Acute (3) Uncontrolled hypertension Current Visit: No Status: Acute Subjective Date of service: 01/26/17 Principal diagnosis: anterolateral STEMI Interval history: Patient is transferred to telemetry. Overall is feeling better no chest pain or significant difficulty breathing. He still complains of intermittent difficulty in breathing. Objective Vital Signs Temp Pulse Pulse Pulse Resp Resp BP 01/26/17 08:39 01/26/17 08:25 85 18 01/26/17 08:15 84 18 01/26/17 08:00 97.5 F L 75 18 146/81 01/26/17 04:54 98.4 F 81 18 145/73 01/26/17 00:32 98.4 F 76 20 137/63 01/25/17 22:00 63 01/25/17 20:48 82 16 01/25/17 20:39 01/25/17 20:37 75 15 01/25/17 20:15 22 01/25/17 19:58 98.0 F 62 18 155/75 01/25/17 17:00 98.2 F 61 20 136/67 08/15/17 15:21 64 25 H 131/65 01/25/17 15:11 59 L 21 131/65 01/25/17 15:00 62 21 131/65 01/25/17 14:51 62 21 133/63 01/25/17 14:41 63 22 133/63 01/25/17 14:31 64 21 133/63 01/25/17 14:21 64 21 133/63 01/25/17 14:11 62 26 H 133/63 01/25/17 14:00 65 23 133/63 01/25/17 13:50 59 L 17 140/61 01/25/17 13:40 62 17 140/61 01/25/17 13:30 70 22 140/61 01/25/17 13:21 69 18 140/61 01/25/17 13:11 63 18 140/61 01/25/17 13:00 62 21 140/61 01/25/17 12:51 68 21 155/76 01/25/17 12:41 69 24 155/76 01/25/17 12:31 72 25 H 155/76 01/25/17 12:21 79 29 H 155/76 01/25/17 12:11 89 39 H 155/76 01/25/17 12:00 98.9 F 63 22 155/76 Pulse Ox 01/26/17 08:39 99 01/26/17 08:25 01/26/17 08:15 01/26/17 08:00 94 01/26/17 04:54 99 01/26/17 00:32 94 01/25/17 22:00 01/25/17 20:48 01/25/17 20:39 98 01/25/17 20:37 01/25/17 20:15 01/25/17 19:58 98 01/25/17 17:00 99 01/25/17 15:21 98 01/25/17 15:11 98 01/25/17 15:00 96 01/25/17 14:51 97 01/25/17 14:41 96 01/25/17 14:31 97 01/25/17 14:21 97 01/25/17 14:11 97 01/25/17 14:00 95 01/25/17 13:50 97 01/25/17 13:40 97 01/25/17 13:30 96 01/25/17 13:21 97 01/25/17 13:11 96 01/25/17 13:00 97 01/25/17 12:51 96 01/25/17 12:41 97 01/25/17 12:31 95 01/25/17 12:21 96 01/25/17 12:11 93 01/25/17 12:00 95 - Physical Examination General: Appears Well, No Apparent Distress HEENT: Positive: PERRL, Sinus Tenderness, Mucus Membranes Moist Neck: Positive: neck supple, trachea midline Cardiac: Positive: Reg Rate and Rhythm Lungs: Positive: clear to auscultation Neuro: Positive: Grossly Intact, Cranial Nerve 2-12 Intact Abdomen: Positive: Unremarkable, Soft, Active Bowel Sounds Skin: Positive: Clear Musculoskeletal: No Fluid Collection, No Pain, Normal Range of Motion Extremities: Present: upper extr. pulses, lower extr. pulses. Absent: edema - Labs and Meds Comprehensive Metabolic Panel 01/26/17 Range/Units 05:57 Sodium 138 (137-145) mmol/L Potassium 3.7 (3.6-5.0) mmol/L Chloride 103.7 (98-107) mmol/L Carbon Dioxide 23 (22-30) mmol/L BUN 21 H (9-20) mg/dL Creatinine 1.2 (0.8-1.5) mg/dL Glucose 82 (75-100) mg/dL Calcium 7.8 L (8.4-10.2) mg/dL - Imaging and Cardiology EKG: image reviewed Echo: report reviewed (EF 35-40%) Cardiac cath: report reviewed - Telemetry EKG Rhythm: Sinus Rhythm - EKG Sinus rhythms and dysrhythmias: sinus rhythm
[2017-01-27] MEDS: HEPARIN SUB-Q SCH ×2 (05:07→13:37)
[2017-01-27] MEDS: PULMICORT IH SCH (09:13)
[2017-01-27] MEDS: BROVANA NEBU IH SCH (09:13)
[2017-01-27] MEDS: COZAAR PO SCH (10:28)
[2017-01-27] MEDS: NORVASC PO SCH (10:29)
[2017-01-27] MEDS: LASIX PO SCH (10:29)
[2017-01-27] MEDS: ALDACTONE PO SCH (10:29)
[2017-01-27] MEDS: ECOTRIN PO SCH (10:29)
[2017-01-27] MEDS: EFFIENT PO SCH (10:30)
--- NOTE | 2017-01-27 11:56 | Progress Note ---
Assessment and Plan Assessment: Anterolateral STEMI - s/p PCI of LAD on 01/24/2017 CAD, s/p multiple MIs and PCIs - in [place] per pt report ICMP - EF 35-40% Leukocytosis - pt afebrile; cont to trend. Sinus bradycardia - asymptomatic HTN HLP COPD - per pulmonary. Chronic pain Chronic mesenteric ischemia - s/p balloon angioplasty and stent of superior mesenteric artery on 10/05/2016 PVD - s/p balloon angioplasty and stent of right iliac artery on 10/05/2016 Former smoker Plan: Cont DAPT with ASA and effient. Cont statin. Cont losartan, norvasc, lasix and aldactone. Resume home lopressor as no SB noted on telemetry in several days. Currently stable cardiac status. Consider discharge this afternoon pending pt tolerates reintroduction of BB. Assessment and plan reviewed with pt at bedside. The patient has been seen in conjunction with Dr. Bro Stroud who agrees with the assessment and plan of care. Subjective Date of service: 01/27/17 Principal diagnosis: anterolateral STEMI Interval history: Pt resting comfortably in bed, denies any cardiac complaints. VSS. Has been ambulating around unit without difficulty. Objective Last Vital Signs Temp 98.0 F 01/27/17 07:25 Pulse 88 01/27/17 10:29 Resp 20 01/27/17 10:00 BP 178/88 01/27/17 10:29 Pulse Ox 100 01/27/17 10:00 - Physical Examination General: Appears Well, No Apparent Distress HEENT: Positive: PERRL, Sinus Tenderness, Mucus Membranes Moist Neck: Positive: neck supple, trachea midline Cardiac: Positive: Reg Rate and Rhythm, S1/S2 Lungs: Positive: Decreased Breath Sounds, Rhonchi Neuro: Positive: Grossly Intact, Cranial Nerve 2-12 Intact Abdomen: Positive: Unremarkable, Soft, Active Bowel Sounds Skin: Positive: Clear Musculoskeletal: No Fluid Collection, No Pain, Normal Range of Motion Extremities: Present: upper extr. pulses, lower extr. pulses. Absent: edema - Imaging and Cardiology EKG: image reviewed Echo: report reviewed (EF 35-40%) Cardiac cath: report reviewed - EKG Sinus rhythms and dysrhythmias: sinus rhythm
[2017-01-27] MEDS ORDERED: LOPRESSOR PO SCH (12:00)
--- NOTE | 2017-01-27 14:31 | Progress Note ---
Assessment and Plan 71 y/o male with STEMI 1. Depressed EF, would watch fluid status, especially with underlining COPD 2. Will add pulmicort and brovana nebs 3. Patient can fill his scripts for COPD at discharge 4. Wean FiO2 as tolerated for sats >88% 5. no objection to discharge today from a pulmonary standpoint, can follow up with his PCP or outpatient pulmonary provider who provided the scripts for his other COPD therapy. Would not give patient any pulm scripts from here. Subjective Date of service: 01/27/17 Principal diagnosis: anterolateral STEMI Interval history: No acute events. Cards dropped dose of BB and waiting to see how patient will tolerate this Objective Vital Signs - 12hr 01/27/17 01/27/17 01/27/17 05:00 07:25 09:14 Temperature 97.8 F 98.0 F Pulse Rate 70 64 Pulse Rate [ Apical] Pulse Rate [ 78 Throughout] Respiratory 16 18 Rate Respiratory Rate [Chest] Respiratory Rate [Right Groin] Respiratory 16 Rate [ Throughout] Blood Pressure 175/81 177/82 O2 Sat by Pulse 97 96 Oximetry 01/27/17 01/27/17 01/27/17 09:25 10:00 10:28 Temperature Pulse Rate 86 88 Pulse Rate [ 70 Apical] Pulse Rate [ 82 Throughout] Respiratory 20 Rate Respiratory 20 Rate [Chest] Respiratory 20 Rate [Right Groin] Respiratory 16 Rate [ Throughout] Blood Pressure 178/80 O2 Sat by Pulse 100 Oximetry 01/27/17 01/27/17 01/27/17 10:29 11:25 13:37 Temperature 98.3 F Pulse Rate 88 68 70 Pulse Rate [ Apical] Pulse Rate [ Throughout] Respiratory 20 Rate Respiratory Rate [Chest] Respiratory Rate [Right Groin] Respiratory Rate [ Throughout] Blood Pressure 178/80 166/72 166/72 O2 Sat by Pulse 97 Oximetry CBC and BMP: 01/25/17 04:00 01/26/17 05:57 ABG, PT/INR, D-dimer: PT/INR, D-dimer PT 12.8 Sec. (12.2-14.9) 01/24/17 03:11 INR 0.97 (0.87-1.13) 01/24/17 03:11 Abnormal lab findings: Abnormal Labs 01/24/17 01/24/17 01/25/17 05:29 08:48 04:00 WBC 14.0 H Baso # 0.2 H Seg Neutrophils % 70.6 H Seg Neutrophils # 9.9 H BUN Calcium Total Creatine Kinase 1537 H 1834 H CK-MB (CK-2) 111.2 H 190.1 H CK-MB (CK-2) Rel Index 7.2 H 10.3 H Troponin T 5.770 H* D 8.100 H* D 01/25/17 01/26/17 04:00 05:57 WBC Baso # Seg Neutrophils % Seg Neutrophils # BUN 21 H Calcium 8.0 L 7.8 L Total Creatine Kinase 691 H CK-MB (CK-2) 51.6 H CK-MB (CK-2) Rel Index 7.4 H Troponin T 4.200 H* D
--- NOTE | 2017-01-27 15:05 | Discharge Summary ---
Providers - Providers Date of Admission: 01/24/17 04:32 Date of discharge: 01/27/17 Attending physician: KIMO MCINTOSH MD 01/24/17 10:28 Consult to Physician [CONS] Routine Consulting Provider: BASILIO CROSS Reason For Exam: ICU care post-STEMI Place consult to:: Dr. Cross Notified:: yes If yes, spoke with:: Dr Cross Time called:: 10:43 Comment:: Completed in person 01/26/17 12:16 Physical Therapy Evaluation and Treat [CONS] Routine Comment: Reason For Exam: deconditioning Primary care physician: FISCAL OFFICER Hospitalization Condition: Stable Pertinent studies: LHC, echo Procedures: LHC with PCI Hospital course: Pt presented on 01/24/2017 with anterolateral STEMI and successfully underwent s /p PCI of LAD on 01/24/2017. Post PCI echo showed EF 35-40%. Pulmonary was consulted for assistance of ICU management and COPD management. Pt experienced no acute complications and remained clinically stable throughout his hospitalization. He is now cleared for discharge home today. Disposition: DC-01 TO HOME OR SELFCARE - Discharge Diagnoses (1) ST elevation myocardial infarction (STEMI) of anterolateral wall Status: Acute (2) CAD (coronary artery disease) Status: Chronic Qualifiers: Coronary Disease-Associated Artery/Lesion type: C [place] vs. transplanted heart: N Associated angina: A (3) Stented coronary artery Status: Chronic (4) Ischemic cardiomyopathy Status: Chronic (5) COPD (chronic obstructive pulmonary disease) Status: Chronic Qualifiers: COPD type: C Chronic bronchitis type: C Emphysema type: E (6) Hypertension Status: Chronic Qualifiers: Hypertension type: H (7) Hyperlipidemia Status: Chronic Qualifiers: Hyperlipidemia type: H (8) PVD (peripheral vascular disease) Status: Chronic (9) Mesenteric ischemia, chronic Status: Chronic Core Measure Documentation - Palliative Care Palliative Care/ Comfort Measures: Not Applicable - Core Measures Any of the following diagnoses?: acute IN - Acute IN Discharge Requirements Aspirin at discharge: Yes OPAL/ARB for LVSD if EF <40%: Yes Beta tiesha at discharge: Yes Statin for LDL = or >100 mg/dl on DC: Yes Exam - Constitutional Vitals: Temp Pulse Resp BP Pulse Ox 98.3 F 65 18 130/73 97 01/27/17 11:25 01/27/17 14:50 01/27/17 14:50 01/27/17 14:50 01/27/17 11:25 General appearance: Present: no acute distress - EENT Eyes: Present: PERRL, EOM intact ENT: hearing intact - Neck Neck: Present: supple, normal ROM - Respiratory Respiratory effort: normal - Cardiovascular Rhythm: regular Heart Sounds: Present: S1 & S2 - Extremities Extremities: no ischemia, pulses intact, pulses symmetrical, No edema, normal temperature, normal color Peripheral Pulses: within normal limits - Abdominal General gastrointestinal: Present: soft, non-tender - Integumentary Integumentary: Present: clear, warm, dry - Musculoskeletal Musculoskeletal: strength equal bilaterally - Psychiatric Psychiatric: appropriate mood/affect Plan Activity: advance as tolerated Diet: low fat, low cholesterol, low salt Wound: open to air, keep clean and dry Follow up with: KETURAH MACHADO MD [Staff Physician] - 7 Days (Follow up in our [place] office with Dr. Bro Machado on 02/01/2017 @ 1:15PM) Prescriptions: AtorvaSTATin [Lipitor] 80 mg PO QHS #30 tablet amLODIPine [Norvasc] 10 mg PO QDAY #30 tablet Furosemide [Lasix TAB] 20 mg PO QDAY #30 tablet Losartan [Cozaar] 100 mg PO QDAY #30 tablet Metoprolol [Lopressor TAB] 25 mg PO BID #60 tablet Prasugrel [Effient] 10 mg PO QDAY #30 tablet
[2017-01-27 18:39] VITALS: BP 142/69
[2017-01-28] MEDS ORDERED: ZOFRAN ODT PO SCH (10:00)
[2017-01-28] MEDS ORDERED: NORVASC PO SCH (10:00)
== END 2017-01-27 17:46 | disposition home health service (06) | DRG 246 ==
LOC: ED 02:53 → CATH 04:18 → CC1 04:32 → 4A 01-25 16:47
PROVIDERS: ADMIT Internal Medicine; ATTEND Emergency Medicine
PROC: 4A023N7 Measurement of Cardiac Sampling and Pressure, Left Heart, Percutaneous Approach (ICD-10-PCS; principal; 2017-01-24)
PROC: 027034Z Dilation of Coronary Artery, One Artery with Drug-eluting Intraluminal Device, Percutaneous Approach (ICD-10-PCS; 2017-01-24)
PROC: B2151ZZ Fluoroscopy of Left Heart using Low Osmolar Contrast (ICD-10-PCS; 2017-01-24)
DX: I21.3 ST elevation (STEMI) myocardial infarction of unspecified site (principal); I50.23 Acute on chronic systolic (congestive) heart failure; I11.0 Hypertensive heart disease with heart failure; D72.829 Elevated white blood cell count, unspecified; J44.9 Chronic obstructive pulmonary disease, unspecified; I73.9 Peripheral vascular disease, unspecified; Z87.891 Personal history of nicotine dependence; I25.10 Atherosclerotic heart disease of native coronary artery without angina pectoris; E78.5 Hyperlipidemia, unspecified; Z82.49 Family history of ischemic heart disease and other diseases of the circulatory system; Z79.82 Long term (current) use of aspirin; I25.5 Ischemic cardiomyopathy
CPT/HCPCS: 36415; 71010; 80048; 80061; 82550; 82553; 84484; 85007; 85025; 85347; 85610; 85730; 86850; 86900; 86901; 92941; 93005; 93010; 93308; 93321; 93325; 93458; 94640; 94760; 99406; A9270-GY; C1725; C1769; C1874; C1887; C1894; C9606; J0461; J1265; J1644; J2250; J2405; J3010; J3246; J7030; Q9967

== ENCOUNTER 2017-04-06 05:45 | Inpatient (IN) | payer MEDICARE ==
[2017-04-06] MEDS ORDERED: AMIDATE IV ONE ×2 (05:53→06:01)
[2017-04-06] MEDS ORDERED: QUELICIN ONE (05:53)
[2017-04-06] MEDS ORDERED: ARTIFICIAL TEARS OPHTH OINT OU PRN (05:58)
[2017-04-06] MEDS ORDERED: VASELINE LIP THERAPY TP PRN (05:58)
[2017-04-06] MEDS ORDERED: NACL 0.9% 500 ML IV SCH (06:00)
[2017-04-06] MEDS ORDERED: DIPRIVAN 10 MG/ML 1,000 MG/100 ML BOTTLE IV ONE (06:01)
[2017-04-06] MEDS ORDERED: QUELICIN IV ONE (06:01)
[2017-04-06] MEDS: DIPRIVAN 10 MG/ML 1,000 MG/100 ML BOTTLE IV SCH ×2 (06:05→23:49)
--- NOTE | 2017-04-06 06:06 | Emergency Department Report ---
Blank Doc - Documentation Documentation: This is a 71-year-old male who presented by EMS from home with respiratory distress. He has a history of COPD and is still a chronic marijuana smoker. He also has a history of coronary artery disease with [place] 7. He came in receiving a breathing treatment but had very audible wheezing even without auscultation. He could not tolerate the CPAP in route and says that he was not going to tolerate the BiPAP that we would possibly attempt. I discussed the possibility of intubation with him and he said that he would prefer intubation to BiPAP. He was placed on the monitor and was found to have very elevated blood pressure. He was given 20 mg of etomidate followed by 60 mg of succinylcholine. The glydescope scope was used with a Mac 3 blade and a 7.5 ET tube. The vocal cords were visualized and the ET tube was passed through it to 24 cm at the teeth. At this point the cuff was inflated. There was bilateral breath sounds heard, color change capnography, condensation in the tube and no breath sounds heard in the abdomen. Initial orders were placed. The patient was placed on a propofol drip. The case will now be transferred over to my colleague, Dr Barth.
[2017-04-06 06:27] LABS: Hematocrit 47.5 % (35.5-45.6); Mean Corpuscular HGB Conc 34 % (32-34); Mean Corpuscular Hemoglobin 30 pg (28-32); Mean Corpuscular Volume 89 fl (84-94); Platelet Count 376 K/mm3 (140-440); Red Blood Count 5.31 M/mm3 (3.65-5.03); Red Cell Distribution Width 14.2 % (13.2-15.2)
[2017-04-06] MEDS ORDERED: TRIDIL DRIP 50MG/250ML 50 MG/250 ML BOTTLE IV ONE (06:28)
[2017-04-06 06:29] LABS: White Blood Count 30.1 K/mm3 (4.5-11.0)
[2017-04-06 06:51] LABS: Albumin 3.5 g/dL (3.9-5); Albumin/Globulin Ratio 0.9 %; Bilirubin,Total 0.3 mg/dL (0.1-1.2); Calcium 8.8 mg/dL (8.4-10.2); Chloride 95.8 mmol/L (98-107); Potassium 3.5 mmol/L (3.6-5.0); Total Protein 7.4 g/dL (6.3-8.2)
--- NOTE | 2017-04-06 07:11 | XRay Report ---
Single view chest: Compared to 01/25/17. History: ET tube placement. Findings: Normal cardiomediastinal silhouette. Support system in place. Endotracheal tube in normal position. Prominent bronchovascular markings with venous congestion. Right pleural effusion. No consolidation. Impression: Probable CHF.
[2017-04-06] MEDS ORDERED: LASIX IV ONE (07:32)
--- NOTE | 2017-04-06 08:26 | Emergency Department Report ---
ED Shortness of Breath HPI - General Chief Complaint: Dyspnea/Respdistress Stated Complaint: REJI Time Seen by Provider: 04/06/17 06:28 Source: patient, RN/MD, EMS, old records reviewed Mode of arrival: Stretcher Limitations: No Limitations - History of Present Illness MD Complaint: shortness of breath - Related Data Home Medications Medication Instructions Recorded Confirmed Last Taken Ondansetron [Zofran Odt] 4 mg PO QDAY 12/06/16 01/24/17 12/05/16 Previous Rx's Medication Instructions Recorded Last Taken Type Furosemide [Lasix TAB] 20 mg PO QDAY #30 tablet 12/15/16 01/23/17 Rx Losartan [Cozaar] 100 mg PO QDAY 30 Days 12/15/16 01/23/17 Rx Spironolactone [Aldactone] 25 mg PO QDAY #30 tablet 12/15/16 01/23/17 Rx amLODIPine [Norvasc] 10 mg PO DAILY #30 tablet 12/15/16 01/23/17 Rx oxyCODONE /ACETAMINOPHEN [Percocet 1 tab PO Q6HR PRN #20 tablet 12/15/16 Unknown Rx 5/325 mg] Aspirin EC [Aspirin Enteric Coated 325 mg PO QDAY tablet 01/27/17 Unknown Rx TAB] AtorvaSTATin [Lipitor] 80 mg PO QHS #30 tablet 01/27/17 Unknown Rx Furosemide [Lasix TAB] 20 mg PO QDAY #30 tablet 01/27/17 Unknown Rx Losartan [Cozaar] 100 mg PO QDAY #30 tablet 01/27/17 Unknown Rx Metoprolol [Lopressor TAB] 25 mg PO BID #60 tablet 01/27/17 Unknown Rx Prasugrel [Effient] 10 mg PO QDAY #30 tablet 01/27/17 Unknown Rx Spironolactone [Aldactone] 25 mg PO QDAY tablet 01/27/17 Unknown Rx amLODIPine [Norvasc] 10 mg PO QDAY #30 tablet 01/27/17 Unknown Rx Allergies Allergy/AdvReac Type Severity Reaction Status Date / Time No Known Allergies Allergy Verified 12/06/16 04:24 ED Review of Systems ROS: Stated complaint: REJI Other details as noted in HPI ED Past Medical Hx - Past Medical History Previous Medical History?: Yes Hx Hypertension: Yes Hx Heart Attack/AMI: Yes Hx COPD: Yes Hx HIV: No - Surgical History Past Surgical History?: Yes Hx Coronary Stent: Yes Additional Surgical History: colon surgery - Social History Smoking Status: Current Every Day Smoker - Medications Home Medications: Home Medications Medication Instructions Recorded Confirmed Last Taken Type Ondansetron [Zofran Odt] 4 mg PO QDAY 12/06/16 01/24/17 12/05/16 History Furosemide [Lasix TAB] 20 mg PO QDAY #30 tablet 12/15/16 01/24/17 01/23/17 Rx Losartan [Cozaar] 100 mg PO QDAY 30 Days 12/15/16 01/24/17 01/23/17 Rx Spironolactone [Aldactone] 25 mg PO QDAY #30 tablet 12/15/16 01/24/17 01/23/17 Rx amLODIPine [Norvasc] 10 mg PO DAILY #30 tablet 12/15/16 01/24/17 01/23/17 Rx oxyCODONE /ACETAMINOPHEN [Percocet 1 tab PO Q6HR PRN #20 tablet 12/15/16 Unknown Rx 5/325 mg] Aspirin EC [Aspirin Enteric Coated 325 mg PO QDAY tablet 01/27/17 Unknown Rx TAB] AtorvaSTATin [Lipitor] 80 mg PO QHS #30 tablet 01/27/17 Unknown Rx Furosemide [Lasix TAB] 20 mg PO QDAY #30 tablet 01/27/17 Unknown Rx Losartan [Cozaar] 100 mg PO QDAY #30 tablet 01/27/17 Unknown Rx Metoprolol [Lopressor TAB] 25 mg PO BID #60 tablet 01/27/17 Unknown Rx Prasugrel [Effient] 10 mg PO QDAY #30 tablet 01/27/17 Unknown Rx Spironolactone [Aldactone] 25 mg PO QDAY tablet 01/27/17 Unknown Rx amLODIPine [Norvasc] 10 mg PO QDAY #30 tablet 01/27/17 Unknown Rx ED Physical Exam - General Limitations: No Limitations General appearance: lethargic, obtunded - Respiratory Respiratory exam: Present: respiratory distress, wheezes, rales - Cardiovascular Cardiovascular Exam: Present: tachycardia ED Course Vital Signs 04/06/17 04/06/17 04/06/17 05:47 05:55 06:00 Temperature Pulse Rate 112 H Respiratory 40 H 40 H 19 Rate Blood Pressure 255/146 242/145 Blood Pressure [Left] O2 Sat by Pulse 92 Oximetry 04/06/17 04/06/17 04/06/17 06:15 06:30 06:44 Temperature Pulse Rate 122 H 108 H 120 H Respiratory 42 H 36 H Rate Blood Pressure 261/150 205/112 261/150 Blood Pressure [Left] O2 Sat by Pulse 96 96 95 Oximetry 04/06/17 04/06/17 04/06/17 06:45 06:51 07:00 Temperature Pulse Rate 105 H 110 H 113 H Respiratory 32 H 38 H 29 H Rate Blood Pressure 206/109 206/109 Blood Pressure [Left] O2 Sat by Pulse 97 95 Oximetry 04/06/17 04/06/17 04/06/17 07:15 07:25 07:30 Temperature 99.4 F Pulse Rate 108 H 109 H 110 H Respiratory 34 H 38 H Rate Blood Pressure 207/114 231/139 Blood Pressure 215/126 [Left] O2 Sat by Pulse 98 100 98 Oximetry 04/06/17 04/06/17 04/06/17 07:45 08:00 08:15 Temperature Pulse Rate 112 H 114 H 114 H Respiratory 33 H 32 H 31 H Rate Blood Pressure 234/142 235/135 232/135 Blood Pressure [Left] O2 Sat by Pulse 98 Oximetry ED Medical Decision Making - Lab Data Result diagrams: 04/06/17 06:14 04/06/17 06:14 Laboratory Results - last 24 hr 04/06/17 04/06/17 04/06/17 06:14 06:14 06:14 WBC 30.1 H RBC 5.31 H Hgb 16.0 H Hct 47.5 H MCV 89 MCH 30 MCHC 34 RDW 14.2 Plt Count 376 Lymph # Grease Refining Supervisor Sodium 135 L Potassium 3.5 L Chloride 95.8 L Carbon Dioxide 19 L Anion Gap 24 BUN 25 H Creatinine 1.7 H Estimated GFR 40 BUN/Creatinine Ratio 15 Glucose 253 H Calcium 8.8 Total Bilirubin 0.30 AST 22 ALT 13 Alkaline Phosphatase 117 Troponin T 0.044 H NT-Pro-B Natriuret Pep 54955 H Total Protein 7.4 Albumin 3.5 L Albumin/Globulin Ratio 0.9 Triglycerides 125 Cholesterol 291 H LDL Cholesterol Direct 199 H HDL Cholesterol 67 H Cholesterol/HDL Ratio 4.34 - Medical Decision Making To give her case for Dr. rojo at 6 AM. On my evaluation the patient was clearly volume overloaded. Crackles in his lungs bilaterally. His blood pressure was in the 260s. I believe this is likely flash pulmonary edema. I initiated a nitroglycerin drip and started the patient on Lasix. I discussed case with the ICU team and will admit the patient to the intensive care unit. He said he minimal response from his nitroglycerin drip. Portions of this chart were dictated with dictation software. There may be dictation errors contained within this note. Critical Care Time: Yes (35) Critical care attestation.: If time is entered above; I have spent that time in minutes in the direct care of this critically ill patient, excluding procedure time. Critical Care Time: 35 ED Disposition Clinical Impression: Acute exacerbation of CHF (congestive heart failure), Acute respiratory failure Disposition: 09 OP ADMIT IP TO THIS HOSP Is pt being admited?: Yes Condition: Critical Referrals: PRIMARY CARE, [Primary Care Provider] - 3-5 Days
[2017-04-06] MEDS ORDERED: DULCOLAX PR PRN (09:00)
[2017-04-06 09:03] LABS: ISTAT Base Excess -12; ISTAT HCO3 17.4; ISTAT PCO2 51.6 (35-45); ISTAT PH 7.137 (7.35-7.45); ISTAT PO2 175 (80-105); ISTAT SO2 99; ISTAT TCO2 19
[2017-04-06 09:04] LABS: Urine Drugs of Abuse Note Disclamer
--- NOTE | 2017-04-06 09:06 | History and Physical Report ---
History of Present Illness Date of examination: 04/06/17 Date of admission: 04/06/2017 Chief complaint: Respiratory distress History of present illness: Patient is a 71 years male with past medical history of hypertension, COPD, vascular disease, coronary artery disease with KS 7, chronic marijuana smoker, who presented by EMS from home with respiratory distress. Patient intubated and sedated therefore, unable to provide detail history. Per ER physician and charts , Patient came in for respiratory distress and wheezing; on CPAP by EMS. Patient found to have acute hypoxic and hypercapnic respiratory failure, unable to protect his airway. Patient intubated and placed on vent support. Patient found to have Severe Sepsis secondary to UTI and sepsis protocol initiated. Hypertension urgency, acute exacerbation of chronic systolic CHF, acute kidney failure, hypokalemia and hyponatremia No reports of fever, chills , chest pain, she seizure, trauma, loss of bowel or bladder continence or recent ill contacts. Past History Past Medical History: CAD, COPD, heart failure, hypertension, other (vascular disease, coronary artery disease with KS 7) Past Surgical History: Other (unable to assess due to patient mental status ) Social history: other (marijuana ) Family history: other (unable to assess due to patient mental status ) Medications and Allergies Allergies Allergy/AdvReac Type Severity Reaction Status Date / Time No Known Allergies Allergy Verified 12/06/16 04:24 Home Medications Medication Instructions Recorded Confirmed Last Taken Type Ondansetron [Zofran Odt] 4 mg PO QDAY 12/06/16 01/24/17 12/05/16 History Furosemide [Lasix TAB] 20 mg PO QDAY #30 tablet 12/15/16 01/24/17 01/23/17 Rx Losartan [Cozaar] 100 mg PO QDAY 30 Days 12/15/16 01/24/17 01/23/17 Rx Spironolactone [Aldactone] 25 mg PO QDAY #30 tablet 12/15/16 01/24/17 01/23/17 Rx amLODIPine [Norvasc] 10 mg PO DAILY #30 tablet 12/15/16 01/24/17 01/23/17 Rx oxyCODONE /ACETAMINOPHEN [Percocet 1 tab PO Q6HR PRN #20 tablet 12/15/16 Unknown Rx 5/325 mg] Aspirin EC [Aspirin Enteric Coated 325 mg PO QDAY tablet 01/27/17 Unknown Rx TAB] AtorvaSTATin [Lipitor] 80 mg PO QHS #30 tablet 01/27/17 Unknown Rx Furosemide [Lasix TAB] 20 mg PO QDAY #30 tablet 01/27/17 Unknown Rx Losartan [Cozaar] 100 mg PO QDAY #30 tablet 01/27/17 Unknown Rx Metoprolol [Lopressor TAB] 25 mg PO BID #60 tablet 01/27/17 Unknown Rx Prasugrel [Effient] 10 mg PO QDAY #30 tablet 01/27/17 Unknown Rx Spironolactone [Aldactone] 25 mg PO QDAY tablet 01/27/17 Unknown Rx amLODIPine [Norvasc] 10 mg PO QDAY #30 tablet 01/27/17 Unknown Rx Active Meds: Active Medications Hydrophilic Ointment (Vaseline Lip Therapy) 1 applic TP Q2HR PRN PRN Reason: Dry Lips Propofol (Diprivan 10 Mg/Ml) 1,000 mg in 100 mls @ 1.592 mls/hr IV TITR SUDARSHAN; 5 MCG/KG/MIN PRN Reason: Protocol Last Titration: 04/06/17 06:20 Dose: 50 mcg/kg/min, 15.921 mls/hr Nitroglycerin/Dextrose (Tridil Drip 50mg/250ml) 50 mg in 250 mls @ 12 mls/hr IV TITR ONE; 40 MCG/MIN PRN Reason: Protocol Stop: 04/07/17 03:17 Last Titration: 04/06/17 07:55 Dose: 100 mcg/min, 30 mls/hr Multi-Ingred Cream/Lotion/Oil/Oint (Artificial Tears Ophth Oint) 1 applic OU Q4HR PRN PRN Reason: Dry Eye(s) Sodium Chloride (Nacl 0.9% 500 Ml) 1 ml IV DIRECT SUDARSHAN Review of Systems ROS unobtainable: due to mental status (unable to assess due to patient mental status ) Exam - Constitutional Vitals: Temp Pulse Resp BP Pulse Ox 99.4 F 113 H 32 H 229/128 97 04/06/17 07:25 04/06/17 08:45 04/06/17 08:45 04/06/17 08:45 04/06/17 08:45 General appearance: Present: severe distress (poorly responsive; responding to pain, no posturing, ), other (intubated and sedated) - EENT Eyes: Present: PERRL ENT: other - Neck Neck: Present: supple - Respiratory Respiratory effort: normal Respiratory: bilateral: rhonchi, wheezing - Cardiovascular Rhythm: regular Heart Sounds: Present: S1 & S2 - Abdominal General gastrointestinal: Present: soft, non-tender Male genitourinary: Present: deferred - Rectal Rectal Exam: deferred - Integumentary Integumentary: Present: clear, warm, dry - Musculoskeletal Musculoskeletal: strength equal bilaterally - Psychiatric Psychiatric: other (unresponsive) - Neurologic Neurologic: other (intubated and sedated) - Allied Health Allied health notes reviewed: nursing Results - Labs CBC & Chem 7: 04/06/17 16:50 04/06/17 Unknown Labs: Laboratory Last Values WBC 30.1 K/mm3 (4.5-11.0) H 04/06/17 06:14 RBC 5.31 M/mm3 (3.65-5.03) H 04/06/17 06:14 Hgb 16.0 gm/dl (11.8-15.2) H 04/06/17 06:14 Hct 47.5 % (35.5-45.6) H 04/06/17 06:14 MCV 89 fl (84-94) 04/06/17 06:14 MCH 30 pg (28-32) 04/06/17 06:14 MCHC 34 % (32-34) 04/06/17 06:14 RDW 14.2 % (13.2-15.2) 04/06/17 06:14 Plt Count 376 K/mm3 (140-440) 04/06/17 06:14 Lymph # Latin American Studies Professor 04/06/17 06:14 POC ABG pH 7.137 (7.35-7.45) L 04/06/17 08:57 POC ABG pCO2 51.6 (35-45) H 04/06/17 08:57 POC ABG pO2 175 (80-105) H 04/06/17 08:57 POC ABG HCO3 17.4 04/06/17 08:57 POC ABG Total CO2 19 04/06/17 08:57 POC ABG O2 Sat 99 04/06/17 08:57 POC ABG Base Excess -12 04/06/17 08:57 FiO2 75 % 04/06/17 08:57 Sodium 135 mmol/L (137-145) L 04/06/17 06:14 Potassium 3.5 mmol/L (3.6-5.0) L 04/06/17 06:14 Chloride 95.8 mmol/L (98-107) L 04/06/17 06:14 Carbon Dioxide 19 mmol/L (22-30) L 04/06/17 06:14 Anion Gap 24 mmol/L 04/06/17 06:14 BUN 25 mg/dL (9-20) H 04/06/17 06:14 Creatinine 1.7 mg/dL (0.8-1.5) H 04/06/17 06:14 Estimated GFR 40 ml/min 04/06/17 06:14 BUN/Creatinine Ratio 15 % 04/06/17 06:14 Glucose 253 mg/dL (75-100) H 04/06/17 06:14 Calcium 8.8 mg/dL (8.4-10.2) 04/06/17 06:14 Total Bilirubin 0.30 mg/dL (0.1-1.2) 04/06/17 06:14 AST 22 units/L (5-40) 04/06/17 06:14 ALT 13 units/L (7-56) 04/06/17 06:14 Alkaline Phosphatase 117 units/L (35-129) 04/06/17 06:14 Troponin T 0.044 ng/mL (0.00-0.029) H 04/06/17 06:14 NT-Pro-B Natriuret Pep 46338 pg/mL (0-900) H 04/06/17 06:14 Total Protein 7.4 g/dL (6.3-8.2) 04/06/17 06:14 Albumin 3.5 g/dL (3.9-5) L 04/06/17 06:14 Albumin/Globulin Ratio 0.9 % 04/06/17 06:14 Triglycerides 125 mg/dL (2-149) 04/06/17 06:14 Cholesterol 291 mg/dL (50-199) H 04/06/17 06:14 LDL Cholesterol Direct 199 mg/dL (50-130) H 04/06/17 06:14 HDL Cholesterol 67 mg/dL (40-59) H 04/06/17 06:14 Cholesterol/HDL Ratio 4.34 % 04/06/17 06:14 - Imaging and Cardiology Chest x-ray: image reviewed (congestive heart failure) Assessment and Plan Assessment and plan: Patient is a 71 years male with past medical history of hypertension, COPD, vascular disease, coronary artery disease with KS 7, chronic marijuana smoker, who presented by EMS from home with respiratory distress. Patient intubated and sedated therefore, unable to provide detail history. Per ER physician and charts , Patient came in for respiratory distress and wheezing; on CPAP by EMS. Patient found to have acute hypoxic and hypercapnic respiratory failure, unable to protect his airway. Patient intubated and placed on vent support. Acute hypoxic and hypercapnic respiratory failure Most likely due to CHF VS sepsis Patient currently intubated . No respiratory distress noted. ABG when necessary for follow-up ABGs and monitor acidosis Continue vent weaning. PSV trials. Monitor secretions and suction as needed Managed by Pulmonology Supportive care Acute on chronic systolic Congestive heart failure Chest Xray revealed Congestive heart failure with right sided pleural effusion Echocardiogram on 01/24/2017 with EF 35-40%, global LV systolic function mild to moderately decreased, basal inferolateral and apical anterior wall segments hypokinetic per cardiology. IV, Diuresis, stop nitrates drip Strict I&O's and daily weights Closely monitor electrolytes Cardiology evaluation Acute Encephalopathy Secondary to Acute hypoxic and hypercapnic respiratory failure intubated and sedated Treat underline cause Severe Sepsis Blood cultures collected prior to antibiotic Follow Blood cultures Aggressive IV fluid resuscitation Initiated empiric IV Levaquin Supportive care Acute kidney injury superimposed upon chronic kidney injury stage II Nephrology consulted Urinary tract infection Initiated empiric IV treatment Levaquin IV fluid hydration Urine culture collected Respiratory Acidosis Started on bicarbonate Lactic acid acidosis Most likely Reactive to respiratory distress Hypertension emergency Started on Nitro drip but BP was not improved and switched to Cardene drip. BP improved without intervention; for now hold cardene gtt. Hydralzine IV for SBP>16 Closely monitor blood pressure0 Mild Malnutrition Nutrition consult Suspected STEMI (ST elevation myocardial infarction) elevation Troponin trending up, suspect KS Patient high risk has s/p multiple MIs and PCIs cardiology consult Hypokalemia replaced closely monitor Mild Hyponatremia IV fluid hydration, that will correct Closely monitor electrolytes. Hyperlipidemia we will resume antilipid agents when patient condition improve DVT prophylaxis Lovenox Advance Directives: Yes VTE prophylaxis?: Chemical Contraindication Mechanical VTE Prophylaxis: Treatment Not Indicated Plan of care discussed with patient/family: Yes
[2017-04-06 09:13] LABS: Blastocytes % (Manual) 0 %
[2017-04-06 09:14] LABS: Anisocytosis 1+; Diff Status Complete; Large Platelets Few; Platelet Estimate Cons
[2017-04-06 09:21] LABS: Bacteria,Urine 1+ /HPF (Negative); Bilirubin,Urine NEG (Negative); Blood,Urine SM (Negative); Ketones,Urine NEG (Negative); Leukocyte Esterase,Urine NEG (Negative); Mucus,Urine FEW /HPF; Nitrite,Urine NEG (Negative); Urobilinogen,Urine < 2.0 mg/dL (<2.0)
--- NOTE | 2017-04-06 09:21 | History and Physical Report ---
Medications and Allergies Allergies Allergy/AdvReac Type Severity Reaction Status Date / Time No Known Allergies Allergy Verified 12/06/16 04:24 Home Medications Medication Instructions Recorded Confirmed Last Taken Type Ondansetron [Zofran Odt] 4 mg PO QDAY 12/06/16 01/24/17 12/05/16 History Furosemide [Lasix TAB] 20 mg PO QDAY #30 tablet 12/15/16 01/24/17 01/23/17 Rx Losartan [Cozaar] 100 mg PO QDAY 30 Days 12/15/16 01/24/17 01/23/17 Rx Spironolactone [Aldactone] 25 mg PO QDAY #30 tablet 12/15/16 01/24/17 01/23/17 Rx amLODIPine [Norvasc] 10 mg PO DAILY #30 tablet 12/15/16 01/24/17 01/23/17 Rx oxyCODONE /ACETAMINOPHEN [Percocet 1 tab PO Q6HR PRN #20 tablet 12/15/16 Unknown Rx 5/325 mg] Aspirin EC [Aspirin Enteric Coated 325 mg PO QDAY tablet 01/27/17 Unknown Rx TAB] AtorvaSTATin [Lipitor] 80 mg PO QHS #30 tablet 01/27/17 Unknown Rx Furosemide [Lasix TAB] 20 mg PO QDAY #30 tablet 01/27/17 Unknown Rx Losartan [Cozaar] 100 mg PO QDAY #30 tablet 01/27/17 Unknown Rx Metoprolol [Lopressor TAB] 25 mg PO BID #60 tablet 01/27/17 Unknown Rx Prasugrel [Effient] 10 mg PO QDAY #30 tablet 01/27/17 Unknown Rx Spironolactone [Aldactone] 25 mg PO QDAY tablet 01/27/17 Unknown Rx amLODIPine [Norvasc] 10 mg PO QDAY #30 tablet 01/27/17 Unknown Rx Active Meds: Active Medications Bisacodyl (Dulcolax) 10 mg [place] QDAY PRN PRN Reason: constipation unrelieved by MOM Enoxaparin Sodium (Lovenox) 40 mg SUB-Q QDAY SUDARSHAN Furosemide (Lasix) 40 mg IV 0600,1800 SUDARSHAN Hydrophilic Ointment (Vaseline Lip Therapy) 1 applic TP Q2HR PRN PRN Reason: Dry Lips Propofol (Diprivan 10 Mg/Ml) 1,000 mg in 100 mls @ 1.592 mls/hr IV TITR SUDARSHAN; 5 MCG/KG/MIN PRN Reason: Protocol Last Titration: 04/06/17 06:20 Dose: 50 mcg/kg/min, 15.921 mls/hr Nitroglycerin/Dextrose (Tridil Drip 50mg/250ml) 50 mg in 250 mls @ 12 mls/hr IV TITR ONE; 40 MCG/MIN PRN Reason: Protocol Stop: 04/07/17 03:17 Last Titration: 04/06/17 07:55 Dose: 100 mcg/min, 30 mls/hr Potassium Chloride (Kcl 10meq/100ml) 10 meq in 100 mls @ 100 mls/hr IV Q1H SUDARSHAN Stop: 04/06/17 13:59 Levofloxacin/Dextrose (Levaquin 750mg/150ml) 750 mg in 150 mls @ 100 mls/hr IV Q24HR SUDARSHAN PRN Reason: Protocol Methylprednisolone Sodium Succinate (Solu-Medrol) 60 mg IV Q8H SUDARSHAN Morphine Sulfate (Morphine) 2 mg IV Q4H PRN PRN Reason: Pain, Moderate (4-6) Multi-Ingred Cream/Lotion/Oil/Oint (Artificial Tears Ophth Oint) 1 applic OU Q4HR PRN PRN Reason: Dry Eye(s) Sodium Chloride (Nacl 0.9% 500 Ml) 1 ml IV DIRECT SUDARSHAN Exam - Constitutional Vitals: Temp Pulse Resp BP Pulse Ox 99.4 F 112 H 28 H 219/126 97 04/06/17 07:25 04/06/17 09:15 04/06/17 09:15 04/06/17 09:15 04/06/17 08:45 Results - Labs CBC & Chem 7: 04/06/17 06:14 04/06/17 06:14 Labs: Laboratory Last Values WBC 30.1 K/mm3 (4.5-11.0) H 04/06/17 06:14 RBC 5.31 M/mm3 (3.65-5.03) H 04/06/17 06:14 Hgb 16.0 gm/dl (11.8-15.2) H 04/06/17 06:14 Hct 47.5 % (35.5-45.6) H 04/06/17 06:14 MCV 89 fl (84-94) 04/06/17 06:14 MCH 30 pg (28-32) 04/06/17 06:14 MCHC 34 % (32-34) 04/06/17 06:14 RDW 14.2 % (13.2-15.2) 04/06/17 06:14 Plt Count 376 K/mm3 (140-440) 04/06/17 06:14 Lymph # Egg Breaking Machine Operator 04/06/17 06:14 Add Manual Diff Complete 04/06/17 06:14 Total Counted 100 04/06/17 06:14 Seg Neuts % (Manual) 72.0 % (40.0-70.0) H 04/06/17 06:14 Band Neutrophils % 2.0 % 04/06/17 06:14 Lymphocytes % (Manual) 19.0 % (13.4-35.0) 04/06/17 06:14 Reactive Lymphs % (Man) 0 % 04/06/17 06:14 Monocytes % (Manual) 5.0 % (0.0-7.3) 04/06/17 06:14 Eosinophils % (Manual) 2.0 % (0.0-4.3) 04/06/17 06:14 Metamyelocytes % 0 % 04/06/17 06:14 Myelocytes % 0 % 04/06/17 06:14 Promyelocytes % 0 % 04/06/17 06:14 Blast Cells % 0 % 04/06/17 06:14 Nucleated RBC % Not Reportable 04/06/17 06:14 Seg Neutrophils # Man 21.7 K/mm3 (1.8-7.7) H 04/06/17 06:14 Band Neutrophils # 0.6 K/mm3 04/06/17 06:14 Lymphocytes # (Manual) 5.7 K/mm3 (1.2-5.4) H 04/06/17 06:14 Abs React Lymphs (Man) 0.0 K/mm3 04/06/17 06:14 Monocytes # (Manual) 1.5 K/mm3 (0.0-0.8) H 04/06/17 06:14 Eosinophils # (Manual) 0.6 K/mm3 (0.0-0.4) H 04/06/17 06:14 Basophils # (Manual) 0.0 K/mm3 (0.0-0.1) 04/06/17 06:14 Metamyelocytes # 0.0 K/mm3 04/06/17 06:14 Myelocytes # 0.0 K/mm3 04/06/17 06:14 Promyelocytes # 0.0 K/mm3 04/06/17 06:14 Blast Cells # 0.0 K/mm3 04/06/17 06:14 WBC Morphology Not Reportable 04/06/17 06:14 Hypersegmented Neuts Not Reportable 04/06/17 06:14 Hyposegmented Neuts Not Reportable 04/06/17 06:14 Hypogranular Neuts Not Reportable 04/06/17 06:14 Smudge Cells Not Reportable 04/06/17 06:14 Toxic Granulation Not Reportable 04/06/17 06:14 Toxic Vacuolation Not Reportable 04/06/17 06:14 Dohle Bodies Not Reportable 04/06/17 06:14 Pelger-Huet Anomaly Not Reportable 04/06/17 06:14 Rylie Rods Not Reportable 04/06/17 06:14 Platelet Estimate Cons 04/06/17 06:14 Clumped Platelets Not Reportable 04/06/17 06:14 Plt Clumps, EDTA Not Reportable 04/06/17 06:14 Large Platelets Few 04/06/17 06:14 Giant Platelets Not Reportable 04/06/17 06:14 Platelet Satelliting Not Reportable 04/06/17 06:14 Plt Morphology Comment Not Reportable 04/06/17 06:14 RBC Morphology Not Reportable 04/06/17 06:14 Dimorphic RBCs Not Reportable 04/06/17 06:14 Polychromasia Not Reportable 04/06/17 06:14 Hypochromasia Not Reportable 04/06/17 06:14 Poikilocytosis Not Reportable 04/06/17 06:14 Anisocytosis 1+ 04/06/17 06:14 Microcytosis Not Reportable 04/06/17 06:14 Macrocytosis Not Reportable 04/06/17 06:14 Spherocytes Not Reportable 04/06/17 06:14 Pappenheimer Bodies Not Reportable 04/06/17 06:14 Sickle Cells Not Reportable 04/06/17 06:14 Target Cells Not Reportable 04/06/17 06:14 Tear Drop Cells Not Reportable 04/06/17 06:14 Ovalocytes Not Reportable 04/06/17 06:14 Helmet Cells Not Reportable 04/06/17 06:14 Rivas-Brockway Bodies Not Reportable 04/06/17 06:14 Tillar Rings Not Reportable 04/06/17 06:14 Salvador Cells Not Reportable 04/06/17 06:14 Bite Cells Not Reportable 04/06/17 06:14 Crenated Cell Not Reportable 04/06/17 06:14 Elliptocytes Not Reportable 04/06/17 06:14 Acanthocytes (Spur) Not Reportable 04/06/17 06:14 Rouleaux Not Reportable 04/06/17 06:14 Hemoglobin C Crystals Not Reportable 04/06/17 06:14 Schistocytes Not Reportable 04/06/17 06:14 Malaria parasites Not Reportable 04/06/17 06:14 Maulik Bodies Not Reportable 04/06/17 06:14 Hem Pathologist Commnt No 04/06/17 06:14 POC ABG pH 7.137 (7.35-7.45) L 04/06/17 08:57 POC ABG pCO2 51.6 (35-45) H 04/06/17 08:57 POC ABG pO2 175 (80-105) H 04/06/17 08:57 POC ABG HCO3 17.4 04/06/17 08:57 POC ABG Total CO2 19 04/06/17 08:57 POC ABG O2 Sat 99 04/06/17 08:57 POC ABG Base Excess -12 04/06/17 08:57 FiO2 75 % 04/06/17 08:57 Sodium 135 mmol/L (137-145) L 04/06/17 06:14 Potassium 3.5 mmol/L (3.6-5.0) L 04/06/17 06:14 Chloride 95.8 mmol/L (98-107) L 04/06/17 06:14 Carbon Dioxide 19 mmol/L (22-30) L 04/06/17 06:14 Anion Gap 24 mmol/L 04/06/17 06:14 BUN 25 mg/dL (9-20) H 04/06/17 06:14 Creatinine 1.7 mg/dL (0.8-1.5) H 04/06/17 06:14 Estimated GFR 40 ml/min 04/06/17 06:14 BUN/Creatinine Ratio 15 % 04/06/17 06:14 Glucose 253 mg/dL (75-100) H 04/06/17 06:14 Calcium 8.8 mg/dL (8.4-10.2) 04/06/17 06:14 Total Bilirubin 0.30 mg/dL (0.1-1.2) 04/06/17 06:14 AST 22 units/L (5-40) 04/06/17 06:14 ALT 13 units/L (7-56) 04/06/17 06:14 Alkaline Phosphatase 117 units/L (35-129) 04/06/17 06:14 Troponin T 0.044 ng/mL (0.00-0.029) H 04/06/17 06:14 NT-Pro-B Natriuret Pep 46264 pg/mL (0-900) H 04/06/17 06:14 Total Protein 7.4 g/dL (6.3-8.2) 04/06/17 06:14 Albumin 3.5 g/dL (3.9-5) L 04/06/17 06:14 Albumin/Globulin Ratio 0.9 % 04/06/17 06:14 Triglycerides 125 mg/dL (2-149) 04/06/17 06:14 Cholesterol 291 mg/dL (50-199) H 04/06/17 06:14 LDL Cholesterol Direct 199 mg/dL (50-130) H 04/06/17 06:14 HDL Cholesterol 67 mg/dL (40-59) H 04/06/17 06:14 Cholesterol/HDL Ratio 4.34 % 04/06/17 06:14 Urine Bilirubin Neg (Negative) 04/06/17 07:55 Urine RBC (Auto) 3.0 /HPF (0.0-6.0) 04/06/17 07:55 U Epithel Cells (Auto) 3.0 /HPF (0-13.0) 04/06/17 07:55
[2017-04-06 09:23] LABS: Protein,Urine >500 mg/dL (Negative)
[2017-04-06] MEDS ORDERED: MORPHINE IV PRN (09:30)
[2017-04-06] MEDS ORDERED: LOVENOX SUB-Q SCH (10:00)
[2017-04-06] MEDS ORDERED: LASIX IV SCH (10:00)
[2017-04-06] MEDS ORDERED: CARDENE 50 MG in NACL 0.9% 250ML 230 ML IV SCH (10:00)
--- NOTE | 2017-04-06 10:00 | Consultation ---
History of Present Illness Consult date: 04/06/17 Requesting physician: ASHA OREILLY Reason for consult: COPD, hypoxemia, other (CHF exacerbation and pulmonary edema ) History of present illness: 71 y/o male, originally brought in via EMS with difficulty breathing. Failed bipap and was electively intubated. Originally hypertensive on admission with acute renal failure. Positive troponins. Currently sedated on propofol. Nitro stopped and was started on cardene drip for BP. No family at bedside. Past History Past Medical History: CAD, COPD Past Surgical History: Other (prior CATH) Social history: smoking, alcohol abuse, other (socioeconomic) Medications and Allergies Allergies Allergy/AdvReac Type Severity Reaction Status Date / Time No Known Allergies Allergy Verified 12/06/16 04:24 Home Medications Medication Instructions Recorded Confirmed Last Taken Type Ondansetron [Zofran Odt] 4 mg PO QDAY 12/06/16 01/24/17 12/05/16 History Furosemide [Lasix TAB] 20 mg PO QDAY #30 tablet 12/15/16 01/24/17 01/23/17 Rx Losartan [Cozaar] 100 mg PO QDAY 30 Days 12/15/16 01/24/17 01/23/17 Rx Spironolactone [Aldactone] 25 mg PO QDAY #30 tablet 12/15/16 01/24/17 01/23/17 Rx amLODIPine [Norvasc] 10 mg PO DAILY #30 tablet 12/15/16 01/24/17 01/23/17 Rx oxyCODONE /ACETAMINOPHEN [Percocet 1 tab PO Q6HR PRN #20 tablet 12/15/16 Unknown Rx 5/325 mg] Aspirin EC [Aspirin Enteric Coated 325 mg PO QDAY tablet 01/27/17 Unknown Rx TAB] AtorvaSTATin [Lipitor] 80 mg PO QHS #30 tablet 01/27/17 Unknown Rx Furosemide [Lasix TAB] 20 mg PO QDAY #30 tablet 01/27/17 Unknown Rx Losartan [Cozaar] 100 mg PO QDAY #30 tablet 01/27/17 Unknown Rx Metoprolol [Lopressor TAB] 25 mg PO BID #60 tablet 01/27/17 Unknown Rx Prasugrel [Effient] 10 mg PO QDAY #30 tablet 01/27/17 Unknown Rx Spironolactone [Aldactone] 25 mg PO QDAY tablet 01/27/17 Unknown Rx amLODIPine [Norvasc] 10 mg PO QDAY #30 tablet 01/27/17 Unknown Rx Active Meds: Active Medications Albuterol (Proventil) 2.5 mg IH Q4HRT [facility] Bisacodyl (Dulcolax) 10 mg [place] QDAY PRN PRN Reason: constipation unrelieved by MOM Enoxaparin Sodium (Lovenox) 40 mg SUB-Q QDAY [facility] Last Admin: 04/06/17 09:55 Dose: 40 mg Furosemide (Lasix) 40 mg IV 0600,1800 [facility] Last Admin: 04/06/17 09:55 Dose: 40 mg Hydrophilic Ointment (Vaseline Lip Therapy) 1 applic TP Q2HR PRN PRN Reason: Dry Lips Propofol (Diprivan 10 Mg/Ml) 1,000 mg in 100 mls @ 1.592 mls/hr IV TITR SUDARSHAN; 5 MCG/KG/MIN PRN Reason: Protocol Last Titration: 04/06/17 06:20 Dose: 50 mcg/kg/min, 15.921 mls/hr Nitroglycerin/Dextrose (Tridil Drip 50mg/250ml) 50 mg in 250 mls @ 12 mls/hr IV TITR ONE; 40 MCG/MIN PRN Reason: Protocol Stop: 04/07/17 03:17 Last Titration: 04/06/17 07:55 Dose: 100 mcg/min, 30 mls/hr Potassium Chloride (Kcl 10meq/100ml) 10 meq in 100 mls @ 100 mls/hr IV Q1H [facility] Stop: 04/06/17 13:59 Levofloxacin/Dextrose (Levaquin 750mg/150ml) 750 mg in 150 mls @ 100 mls/hr IV Q24HR [facility] PRN Reason: Protocol Nicardipine HCl 50 mg/ Sodium (Chloride) 250 mls @ 25 mls/hr IV TITR SUDARSHAN; 5 MG/ HR PRN Reason: Protocol Methylprednisolone Sodium Succinate (Solu-Medrol) 60 mg IV Q8H [facility] Morphine Sulfate (Morphine) 2 mg IV Q4H PRN PRN Reason: Pain, Moderate (4-6) Multi-Ingred Cream/Lotion/Oil/Oint (Artificial Tears Ophth Oint) 1 applic OU Q4HR PRN PRN Reason: Dry Eye(s) Pantoprazole Sodium (Protonix) 40 mg IV DAILY [facility] Sodium Chloride (Nacl 0.9% 500 Ml) 1 ml IV DIRECT SUDARSHAN Review of Systems ROS unobtainable: due to endotracheal tube, due to mental status Physical Examination Vital signs: Vital Signs Resp BP 40 H 255/146 04/06/17 05:47 04/06/17 05:47 General appearance: no acute distress, comatose Eyes: non-icteric ENT: oropharynx dry Neck: supple Ascultation: Bilateral: rales, rhonchi Percussion: Bilateral: not dull Cardiovascular: regular rate and rhythm Gastrointestinal: absent bowel sounds Extremities: no edema, cool Musculoskeletal: no deformities unable to assess Results - Laboratory Findings CBC and BMP: 04/07/17 04:00 04/07/17 04:00 ABG POC ABG pH 7.137 (7.35-7.45) L 04/06/17 08:57 POC ABG pCO2 51.6 (35-45) H 04/06/17 08:57 POC ABG pO2 175 (80-105) H 04/06/17 08:57 POC ABG HCO3 17.4 04/06/17 08:57 POC ABG Total CO2 19 04/06/17 08:57 POC ABG O2 Sat 99 04/06/17 08:57 - Diagnostic Findings Chest x-ray: image reviewed (Bilateral alveolar infiltrates with mild cardiomegaly) Assessment and Plan 71 y/o male with recent STEMI in January, systolic HF (EF 35-40) admitted with acute respiratory failure, most likely from CHF exacerbation with pulmonary edema and hypertensive Emergency. 1. Increase PEEP 2. Repeat CXR at 12 3. Agree with diuresis, needs to be net negative 4. Suggest stopping nitro and placing on Cardene drip 5. Minimize sedation as tolerated for Vargas of 2 or RASS of 0 CCT 31 minutes
[2017-04-06] MEDS: KCL 10MEQ/100ML 10 MEQ/100 ML BAG IV SCH ×4 (10:38→13:56)
[2017-04-06] MEDS: PROTONIX IV SCH (10:49)
[2017-04-06] MEDS ORDERED: LEVAQUIN 750MG/150ML 750 MG/150 ML BAG IV SCH (11:00)
--- NOTE | 2017-04-06 11:13 | Event Note ---
I saw and evaluated the patient. I agree with the findings and the plan of care as documented in the Nurse Practitioner's~note, with the following corrections and additions. 71-year-old woman with a past medical history of hypertension, COPD, coronary artery disease status post left heart cath with PCI 01/27/17. Problems * Acute hypoxic and hypercapnic respiratory failure, intubated, continue ventilator * Acute kidney injury superimposed upon chronic kidney injury stage II, Nephrology consult * Htn emergency: Cardene drip * Hypokalemia: fup levels, replete as needed * Hyponatremia: mild, monitor * UTI- sepsis, abx, fup urine and blood cx * Elevated Troponin, trending up, suspect ND: cardiology consult, fup EKG * Acute exacerbation of chronic systolic CHF. EF 30%. IV diuresis, nitrates drip, cardiology consults. The high probability of a clinically significant, sudden or life threatening deterioration of the [cardiovascular, pulmonary and renal] system(s) required my full and direct attention, intervention and personal management. The aggregate critical care time was [33] minutes. This time is in addition to time spent performing reported procedures but includes the following: [] Data Review and interpretation [] Patient assessment and monitoring of vital signs [] Documentation [] Medication orders and management
[2017-04-06] MEDS ORDERED: SODIUM BICARBONATE FEEDTUBE PRN (12:00)
[2017-04-06] MEDS ORDERED: SIMPLE SYRUP FEEDTUBE PRN ×2 (12:00)
[2017-04-06] MEDS ORDERED: PANCREAZE DR 10,500 UNIT FEEDTUBE PRN (12:00)
[2017-04-06] MEDS ORDERED: SODIUM BICARBONATE IV ONE ×2 (14:05→14:13)
[2017-04-06 14:24] LABS: ISTAT Base Excess -21; ISTAT HCO3 10.7; ISTAT PCO2 45.9 (35-45); ISTAT PH 6.975 (7.35-7.45); ISTAT PO2 240 (80-105); ISTAT SO2 99; ISTAT TCO2 12
[2017-04-06] MEDS ORDERED: SODIUM BICARBONATE IV NR (15:00)
--- NOTE | 2017-04-06 15:15 | Consultation ---
History of Present Illness - Reason for Consult Consult date: 04/06/17 acute renal failure, metabolic acidosis Requesting physician: CANDE CHINO - History of Present Illness Patient is a 71 years male with past medical history of hypertension, COPD, vascular disease, coronary artery disease with [place] 7, chronic marijuana smoker, who presented by EMS from home with respiratory distress. Patient intubated and sedated therefore, unable to provide detail history. Per ER physician and charts , Patient came in for respiratory distress and wheezing; on CPAP by EMS. Patient found to have acute hypoxic and hypercapnic respiratory failure, unable to protect his airway. Patient intubated and placed on vent support. Patient found to have Severe Sepsis secondary to UTI and sepsis protocol initiated. Hypertension urgency, acute exacerbation of chronic systolic CHF, acute kidney failure, hypokalemia and hyponatremia No reports of fever, chills , chest pain, seizure, trauma, loss of bowel or bladder continence or recent ill contacts. Past History Past Medical History: CAD, COPD, heart failure, hypertension, other (vascular disease, coronary artery disease with [place] 7) Past Surgical History: Other (unable to assess due to patient mental status ) Social history: other (marijuana ) Family history: other (unable to assess due to patient mental status ) Medications and Allergies Allergies Allergy/AdvReac Type Severity Reaction Status Date / Time No Known Allergies Allergy Verified 12/06/16 04:24 Home Medications Medication Instructions Recorded Confirmed Last Taken Type Ondansetron [Zofran Odt] 4 mg PO QDAY 12/06/16 01/24/17 12/05/16 History Furosemide [Lasix TAB] 20 mg PO QDAY #30 tablet 12/15/16 01/24/17 01/23/17 Rx Losartan [Cozaar] 100 mg PO QDAY 30 Days 12/15/16 01/24/17 01/23/17 Rx Spironolactone [Aldactone] 25 mg PO QDAY #30 tablet 12/15/16 01/24/17 01/23/17 Rx amLODIPine [Norvasc] 10 mg PO DAILY #30 tablet 12/15/16 01/24/17 01/23/17 Rx oxyCODONE /ACETAMINOPHEN [Percocet 1 tab PO Q6HR PRN #20 tablet 12/15/16 Unknown Rx 5/325 mg] Aspirin EC [Aspirin Enteric Coated 325 mg PO QDAY tablet 01/27/17 Unknown Rx TAB] AtorvaSTATin [Lipitor] 80 mg PO QHS #30 tablet 01/27/17 Unknown Rx Furosemide [Lasix TAB] 20 mg PO QDAY #30 tablet 01/27/17 Unknown Rx Losartan [Cozaar] 100 mg PO QDAY #30 tablet 01/27/17 Unknown Rx Metoprolol [Lopressor TAB] 25 mg PO BID #60 tablet 01/27/17 Unknown Rx Prasugrel [Effient] 10 mg PO QDAY #30 tablet 01/27/17 Unknown Rx Spironolactone [Aldactone] 25 mg PO QDAY tablet 01/27/17 Unknown Rx amLODIPine [Norvasc] 10 mg PO QDAY #30 tablet 01/27/17 Unknown Rx Active Meds: Active Medications Albuterol (Proventil) 2.5 mg IH Q4HRT [facility] Lipase/Protease/Amylase (Pancreaze Dr 10,500 Unit) 1 each FEEDTUBE PRN PRN PRN Reason: For Clogged Feeding Tube Bisacodyl (Dulcolax) 10 mg [place] QDAY PRN PRN Reason: constipation unrelieved by MOM Enoxaparin Sodium (Lovenox) 40 mg SUB-Q QDAY [facility] Last Admin: 04/06/17 09:55 Dose: 40 mg Furosemide (Lasix) 40 mg IV 0600,1800 [facility] Last Admin: 04/06/17 09:55 Dose: 40 mg Hydrophilic Ointment (Vaseline Lip Therapy) 1 applic TP Q2HR PRN PRN Reason: Dry Lips Propofol (Diprivan 10 Mg/Ml) 1,000 mg in 100 mls @ 1.592 mls/hr IV TITR [facility]; 5 MCG/KG/MIN PRN Reason: Protocol Last Titration: 04/06/17 13:56 Dose: Infused Nitroglycerin/Dextrose (Tridil Drip 50mg/250ml) 50 mg in 250 mls @ 12 mls/hr IV TITR ONE; 40 MCG/MIN PRN Reason: Protocol Stop: 04/07/17 03:17 Last Titration: 04/06/17 07:55 Dose: 100 mcg/min, 30 mls/hr Levofloxacin/Dextrose (Levaquin 750mg/150ml) 750 mg in 150 mls @ 100 mls/hr IV Q24HR [facility] PRN Reason: Protocol Last Admin: 04/06/17 10:38 Dose: 100 mls/hr Nicardipine HCl 50 mg/ Sodium (Chloride) 250 mls @ 25 mls/hr IV TITR [facility]AN; 5 MG/ HR PRN Reason: Protocol Last Admin: 04/06/17 10:39 Dose: 5 mg/hr, 25 mls/hr Sodium Bicarbonate 150 meq/ (Dextrose) 1,150 mls @ 125 mls/hr IV DIRECT [facility] Morphine Sulfate (Morphine) 2 mg IV Q4H PRN PRN Reason: Pain, Moderate (4-6) Multi-Ingred Cream/Lotion/Oil/Oint (Artificial Tears Ophth Oint) 1 applic OU Q4HR PRN PRN Reason: Dry Eye(s) Pantoprazole Sodium (Protonix) 40 mg IV DAILY [facility] Last Admin: 04/06/17 10:49 Dose: 40 mg Simple Syrup (Simple Syrup) 15 ml FEEDTUBE PRN PRN PRN Reason: Hypoglycemia Simple Syrup (Simple Syrup) 30 ml FEEDTUBE PRN PRN PRN Reason: Hypoglycemia Sodium Bicarbonate (Sodium Bicarbonate) 325 mg FEEDTUBE PRN PRN PRN Reason: For Clogged Feeding Tube Sodium Bicarbonate (Sodium Bicarbonate) 100 meq IV ONCE NR Stop: 04/06/17 17:51 Sodium Chloride (Nacl 0.9% 500 Ml) 1 ml IV DIRECT [facility] Review of Systems ROS unobtainable: due to mental status Exam - Vital Signs Vital signs: Vital Signs Resp BP 40 H 255/146 04/06/17 05:47 04/06/17 05:47 - Physical Exam Narrative exam: General appearance: Present: severe distress (poorly responsive; responding to pain, no posturing, ), other (intubated and sedated) - EENT Eyes: Present: PERRL ENT: other - Neck Neck: Present: supple - Respiratory Respiratory effort: normal Respiratory: bilateral: rhonchi, wheezing - Cardiovascular Rhythm: regular Heart Sounds: Present: S1 & S2 - Abdominal General gastrointestinal: Present: soft, non-tender Male genitourinary: Present: deferred - Rectal Rectal Exam: deferred - Integumentary Integumentary: Present: clear, warm, dry - Musculoskeletal Musculoskeletal: strength equal bilaterally - Psychiatric Psychiatric: other (unresponsive) - Neurologic Neurologic: other (intubated and sedated) - Allied Health Allied health notes reviewed: nursing Results - Lab Results 04/06/17 06:14 04/06/17 06:14 Most recent lab results Calcium 8.8 mg/dL (8.4-10.2) 04/06/17 06:14 Assessment and Plan Impression: * BILLIE * Acute resp failure * CHF * HTN urgency * metabolic acidosis * UTI Plan: * cr noted, billie due to hypoxia and hypoperfusion * keep map >65 * avoid nephrotoxins * strict i/os * daily lytes * iv abx per primary team * renal us * iv diuresis as tolerated
[2017-04-06] MEDS: PROVENTIL IH SCH ×4 (15:19→23:47)
[2017-04-06] MEDS ORDERED: NACL 0.9% 500 ML 500 ML IV ONE (15:40)
--- NOTE | 2017-04-06 15:47 | Consultation ---
History of Present Illness Consult date: 04/06/17 Requesting physician: ASHA OREILLY Consult reason: congestive heart failure, other ("NSTEMI") History of present illness: The pt is a 71 YO male with a past medical history significant for CAD, s/p anterolateral STEMI with PCI of LAD on 01/24/2017, ICMP (EF 35-40%), COPD, asymptomatic sinus bradycardia, HTN, HLP, chronic pain, chronic mesenteric ischemia (s/p balloon angioplasty and stent of superior mesenteric artery on ), PVD (s/p balloon angioplasty and stent of right iliac artery on 2016), former tobacco smoker, marijuana use. He has been seen by our practice on prior hospitalizations but has not been compliant with OP follow-up. Pt is intubated and nonresponsive on evaluation and thus HPI is obtained per the records and per primary RN. He presented this AM with c/o SOB. Pt was noted to be in respiratory distress with audible wheezes in ED and reportedly told ED MD that he would prefer intubation to BiPAP. Per primary RN, pt stated "just tube me and knock me out". He was subsequently intubated in ED. CXR showed "probable CHF" with right sided pleural effusion and prominent bronchovascular markings with venous congestion per radiology. Admission BP was noted to be 255/146 and pt was placed on nitro gtt then cardene gtt. Pt now with SBP in 60s and is to be placed on vasopressors per director of vital statistics. WBC 30.1; lactic acid 7.3; pH 6.9; troponins 0.044 -> 0.150 -> 0.297. Echo 01/24/2017 showed EF 35-40%, global LV systolic function mild to moderately decreased, basal inferolateral and apical anterior wall segments hypokinetic. Past History Past Medical History: CAD, COPD, heart failure, hypertension, hyperlipidemia, other (PVD; chronic mesenteric ischemia) Past Surgical History: Other (PCI) Social history: other (marijuana ) Family history: other (unable to assess due to patient mental status ) Medications and Allergies Allergies Allergy/AdvReac Type Severity Reaction Status Date / Time No Known Allergies Allergy Verified 12/06/16 04:24 Home Medications Medication Instructions Recorded Confirmed Last Taken Type Ondansetron [Zofran Odt] 4 mg PO QDAY 12/06/16 01/24/17 12/05/16 History Furosemide [Lasix TAB] 20 mg PO QDAY #30 tablet 12/15/16 01/24/17 01/23/17 Rx Losartan [Cozaar] 100 mg PO QDAY 30 Days 12/15/16 01/24/17 01/23/17 Rx Spironolactone [Aldactone] 25 mg PO QDAY #30 tablet 12/15/16 01/24/17 01/23/17 Rx amLODIPine [Norvasc] 10 mg PO DAILY #30 tablet 12/15/16 01/24/17 01/23/17 Rx oxyCODONE /ACETAMINOPHEN [Percocet 1 tab PO Q6HR PRN #20 tablet 12/15/16 Unknown Rx 5/325 mg] Aspirin EC [Aspirin Enteric Coated 325 mg PO QDAY tablet 01/27/17 Unknown Rx TAB] AtorvaSTATin [Lipitor] 80 mg PO QHS #30 tablet 01/27/17 Unknown Rx Furosemide [Lasix TAB] 20 mg PO QDAY #30 tablet 01/27/17 Unknown Rx Losartan [Cozaar] 100 mg PO QDAY #30 tablet 01/27/17 Unknown Rx Metoprolol [Lopressor TAB] 25 mg PO BID #60 tablet 01/27/17 Unknown Rx Prasugrel [Effient] 10 mg PO QDAY #30 tablet 01/27/17 Unknown Rx Spironolactone [Aldactone] 25 mg PO QDAY tablet 01/27/17 Unknown Rx amLODIPine [Norvasc] 10 mg PO QDAY #30 tablet 01/27/17 Unknown Rx Active Meds: Active Medications Albumin Human (Alburx 25% (Albumin)) 25 gm IV Q12HR [facility] Albuterol (Proventil) 2.5 mg IH Q4HRT [facility] Last Admin: 04/06/17 15:19 Dose: 2.5 mg Lipase/Protease/Amylase (Pancreaze Dr 10,500 Unit) 1 each FEEDTUBE PRN PRN PRN Reason: For Clogged Feeding Tube Bisacodyl (Dulcolax) 10 mg [place] QDAY PRN PRN Reason: constipation unrelieved by MOM Hydrophilic Ointment (Vaseline Lip Therapy) 1 applic TP Q2HR PRN PRN Reason: Dry Lips Propofol (Diprivan 10 Mg/Ml) 1,000 mg in 100 mls @ 1.592 mls/hr IV TITR SUDARSHAN; 5 MCG/KG/MIN PRN Reason: Protocol Last Titration: 04/06/17 13:56 Dose: Infused Nitroglycerin/Dextrose (Tridil Drip 50mg/250ml) 50 mg in 250 mls @ 12 mls/hr IV TITR ONE; 40 MCG/MIN PRN Reason: Protocol Stop: 04/07/17 03:17 Last Titration: 04/06/17 07:55 Dose: 100 mcg/min, 30 mls/hr Levofloxacin/Dextrose (Levaquin 750mg/150ml) 750 mg in 150 mls @ 100 mls/hr IV Q24HR [facility] PRN Reason: Protocol Last Admin: 04/06/17 10:38 Dose: 100 mls/hr Sodium Bicarbonate 150 meq/ (Dextrose) 1,150 mls @ 125 mls/hr IV DIRECT SUDARSHAN Vasopressin 20 unit/ Sodium (Chloride) 101 mls @ 9.09 mls/hr IV TITR SUDARSHAN; 0.03 UNITS/MIN PRN Reason: Protocol Sodium Chloride (Nacl 0.9% 500 Ml) 500 mls @ 999 mls/hr IV ONCE ONE Stop: 04/06/17 16:10 Heparin Sodium/Sodium Chloride (Heparin/ 0.45% Nacl-25,000 Unit/500 Ml) 25,000 unit in 500 mls @ 15.921 mls/hr IV TITRATE SUDARSHAN; 15 UNITS/KG/HR PRN Reason: Protocol Morphine Sulfate (Morphine) 2 mg IV Q4H PRN PRN Reason: Pain, Moderate (4-6) Multi-Ingred Cream/Lotion/Oil/Oint (Artificial Tears Ophth Oint) 1 applic OU Q4HR PRN PRN Reason: Dry Eye(s) Pantoprazole Sodium (Protonix) 40 mg IV DAILY [facility] Last Admin: 04/06/17 10:49 Dose: 40 mg Simple Syrup (Simple Syrup) 15 ml FEEDTUBE PRN PRN PRN Reason: Hypoglycemia Simple Syrup (Simple Syrup) 30 ml FEEDTUBE PRN PRN PRN Reason: Hypoglycemia Sodium Bicarbonate (Sodium Bicarbonate) 325 mg FEEDTUBE PRN PRN PRN Reason: For Clogged Feeding Tube Sodium Bicarbonate (Sodium Bicarbonate) 100 meq IV ONCE NR Stop: 04/06/17 17:51 Sodium Chloride (Nacl 0.9% 500 Ml) 1 ml IV DIRECT SUDARSHAN Review of Systems ROS unobtainable: due to endotracheal tube, due to mental status Physical Examination Vital Signs Resp BP 40 H 255/146 04/06/17 05:47 04/06/17 05:47 General appearance: other (intubated; unresponsive) HEENT: Positive: PERRL Neck: Positive: neck supple, trachea midline Cardiac: Positive: Reg Rate and Rhythm Lungs: Positive: clear to auscultation (anterior), Ventilated Respirations Neuro: Positive: Other (intubated; nonresponsive) Abdomen: Positive: Active Bowel Sounds Skin: Positive: Clear. Negative: Rash, Wound Musculoskeletal: No Fluid Collection Extremities: Absent: edema Results 04/06/17 06:14 04/06/17 Unknown - Imaging and Cardiology Echo: report reviewed (01/24/2017 showed EF 35-40%, global LV systolic function mild to moderately decreased, basal inferolateral and apical anterior wall segments hypokinetic) Cardiac cath: report reviewed (PCI of LAD on 01/24/2017) EKG: report reviewed, image reviewed EKG interpretations - Telemetry EKG Rhythm: Sinus Rhythm - EKG Sinus rhythms and dysrhythmias: sinus rhythm Myocardial infarction: anterior GA (acute or rec, lateral GA (acute or rece Assessment and Plan Initiate heparin gtt, ASA, and statin. Hold BB, ACEI/ARB, nitrates in setting of hypotension. Cont to trend Pilo. Repeat EKG in AM. F/u echo. Cont supportive management per primary/pulmonary/director of vital statistics. Considering what appears to be sepsis, probable long duration before ACS presentation, and multiple co-morbid issues, will continue with medical management for now. The patient has been seen in conjunction with Dr. Serrano who agrees with the assessment and plan of care. - Patient Problems (1) Acute respiratory failure Current Visit: Yes Status: Acute Qualifiers: Respiratory failure complication: R (2) STEMI (ST elevation myocardial infarction) Current Visit: Yes Status: Acute Qualifiers: Involved coronary artery: unspecified coronary artery Qualified Code(s): I21.3 - ST elevation (STEMI) myocardial infarction of unspecified site (3) CAD (coronary artery disease) Current Visit: Yes Status: Chronic Qualifiers: Coronary Disease-Associated Artery/Lesion type: C [place] vs. transplanted heart: N Associated angina: A (4) Stented coronary artery Current Visit: Yes Status: Chronic (5) Acute on chronic systolic CHF (congestive heart failure) Current Visit: No Status: Acute (6) Ischemic cardiomyopathy Current Visit: Yes Status: Chronic (7) BILLIE (acute kidney injury) Current Visit: Yes Status: Acute (8) COPD (chronic obstructive pulmonary disease) Current Visit: Yes Status: Chronic Qualifiers: COPD type: C Chronic bronchitis type: C Emphysema type: E (9) Sepsis Current Visit: Yes Status: Acute Qualifiers: Sepsis type: S (10) Hypotension Current Visit: Yes Status: Acute Qualifiers: Hypotension type: H Trimester: T (11) Mesenteric ischemia, chronic Current Visit: Yes Status: Chronic (12) PVD (peripheral vascular disease) Current Visit: Yes Status: Chronic
[2017-04-06] MEDS: SODIUM BICARBONATE 150 MEQ in D5W 1,000 ML IV SCH (15:50)
[2017-04-06] MEDS ORDERED: HEPARIN/ 0.45% NACL-25,000 UNIT/500 ML 25,000 UNIT/500 ML BAG IV SCH (16:00)
--- NOTE | 2017-04-06 16:07 | Emergency Department Report ---
- General Chief complaint: Dyspnea/Respdistress Stated complaint: REJI Time Seen by Provider: 04/06/17 06:28 Source: patient, RN/MD, EMS, old records reviewed Mode of arrival: Stretcher Limitations: No Limitations - History of Present Illness Severity scale (0 -10): 0 - Related Data Home Medications Medication Instructions Recorded Confirmed Last Taken Ondansetron [Zofran Odt] 4 mg PO QDAY 12/06/16 01/24/17 12/05/16 Previous Rx's Medication Instructions Recorded Last Taken Type Furosemide [Lasix TAB] 20 mg PO QDAY #30 tablet 12/15/16 01/23/17 Rx Losartan [Cozaar] 100 mg PO QDAY 30 Days 12/15/16 01/23/17 Rx Spironolactone [Aldactone] 25 mg PO QDAY #30 tablet 12/15/16 01/23/17 Rx amLODIPine [Norvasc] 10 mg PO DAILY #30 tablet 12/15/16 01/23/17 Rx oxyCODONE /ACETAMINOPHEN [Percocet 1 tab PO Q6HR PRN #20 tablet 12/15/16 Unknown Rx 5/325 mg] Aspirin EC [Aspirin Enteric Coated 325 mg PO QDAY tablet 01/27/17 Unknown Rx TAB] AtorvaSTATin [Lipitor] 80 mg PO QHS #30 tablet 01/27/17 Unknown Rx Furosemide [Lasix TAB] 20 mg PO QDAY #30 tablet 01/27/17 Unknown Rx Losartan [Cozaar] 100 mg PO QDAY #30 tablet 01/27/17 Unknown Rx Metoprolol [Lopressor TAB] 25 mg PO BID #60 tablet 01/27/17 Unknown Rx Prasugrel [Effient] 10 mg PO QDAY #30 tablet 01/27/17 Unknown Rx Spironolactone [Aldactone] 25 mg PO QDAY tablet 01/27/17 Unknown Rx amLODIPine [Norvasc] 10 mg PO QDAY #30 tablet 01/27/17 Unknown Rx Allergies Allergy/AdvReac Type Severity Reaction Status Date / Time No Known Allergies Allergy Verified 12/06/16 04:24 ED Review of Systems ROS: Stated complaint: REJI Other details as noted in HPI ED Past Medical Hx - Past Medical History Previous Medical History?: Yes Hx Hypertension: Yes Hx Heart Attack/AMI: Yes Hx COPD: Yes Hx HIV: No - Surgical History Past Surgical History?: Yes Hx Coronary Stent: Yes Additional Surgical History: colon surgery - Social History Smoking Status: Current Every Day Smoker - Medications Home Medications: Home Medications Medication Instructions Recorded Confirmed Last Taken Type Ondansetron [Zofran Odt] 4 mg PO QDAY 12/06/16 01/24/17 12/05/16 History Furosemide [Lasix TAB] 20 mg PO QDAY #30 tablet 12/15/16 01/24/17 01/23/17 Rx Losartan [Cozaar] 100 mg PO QDAY 30 Days 12/15/16 01/24/17 01/23/17 Rx Spironolactone [Aldactone] 25 mg PO QDAY #30 tablet 12/15/16 01/24/17 01/23/17 Rx amLODIPine [Norvasc] 10 mg PO DAILY #30 tablet 12/15/16 01/24/17 01/23/17 Rx oxyCODONE /ACETAMINOPHEN [Percocet 1 tab PO Q6HR PRN #20 tablet 12/15/16 Unknown Rx 5/325 mg] Aspirin EC [Aspirin Enteric Coated 325 mg PO QDAY tablet 01/27/17 Unknown Rx TAB] AtorvaSTATin [Lipitor] 80 mg PO QHS #30 tablet 01/27/17 Unknown Rx Furosemide [Lasix TAB] 20 mg PO QDAY #30 tablet 01/27/17 Unknown Rx Losartan [Cozaar] 100 mg PO QDAY #30 tablet 01/27/17 Unknown Rx Metoprolol [Lopressor TAB] 25 mg PO BID #60 tablet 01/27/17 Unknown Rx Prasugrel [Effient] 10 mg PO QDAY #30 tablet 01/27/17 Unknown Rx Spironolactone [Aldactone] 25 mg PO QDAY tablet 01/27/17 Unknown Rx amLODIPine [Norvasc] 10 mg PO QDAY #30 tablet 01/27/17 Unknown Rx ED Physical Exam - General Limitations: No Limitations General appearance: lethargic, obtunded ED Course Vital Signs 04/06/17 04/06/17 04/06/17 05:47 05:55 06:00 Temperature Pulse Rate 112 H Respiratory 40 H 40 H 19 Rate Blood Pressure 255/146 242/145 Blood Pressure [Left] O2 Sat by Pulse 92 Oximetry 04/06/17 04/06/17 04/06/17 06:15 06:30 06:44 Temperature Pulse Rate 122 H 108 H 120 H Respiratory 42 H 36 H Rate Blood Pressure 261/150 205/112 261/150 Blood Pressure [Left] O2 Sat by Pulse 96 96 95 Oximetry 04/06/17 04/06/17 04/06/17 06:45 06:51 07:00 Temperature Pulse Rate 105 H 110 H 113 H Respiratory 32 H 38 H 29 H Rate Blood Pressure 206/109 206/109 Blood Pressure [Left] O2 Sat by Pulse 97 95 Oximetry 04/06/17 04/06/17 04/06/17 07:15 07:25 07:30 Temperature 99.4 F Pulse Rate 108 H 109 H 110 H Respiratory 34 H 38 H Rate Blood Pressure 207/114 231/139 Blood Pressure 215/126 [Left] O2 Sat by Pulse 98 100 98 Oximetry 04/06/17 04/06/17 04/06/17 07:45 08:00 08:15 Temperature Pulse Rate 112 H 114 H 114 H Respiratory 33 H 32 H 31 H Rate Blood Pressure 234/142 235/135 232/135 Blood Pressure [Left] O2 Sat by Pulse 98 Oximetry 04/06/17 04/06/17 04/06/17 08:18 08:30 08:45 Temperature Pulse Rate 113 H 113 H 113 H Respiratory 28 H 28 H Rate Blood Pressure 232/135 229/128 221/130 Blood Pressure 230/129 229/128 [Left] O2 Sat by Pulse 97 97 97 Oximetry 04/06/17 04/06/17 04/06/17 09:00 09:15 09:30 Temperature Pulse Rate 112 H 115 H Respiratory 28 H 28 H Rate Blood Pressure 223/127 219/126 205/125 Blood Pressure [Left] O2 Sat by Pulse Oximetry 04/06/17 04/06/17 04/06/17 09:45 10:00 10:15 Temperature Pulse Rate 114 H 114 H 113 H Respiratory 23 26 H 49 H Rate Blood Pressure 201/119 192/116 182/114 Blood Pressure [Left] O2 Sat by Pulse 97 Oximetry 04/06/17 04/06/17 04/06/17 10:30 10:45 11:00 Temperature Pulse Rate 112 H 109 H 85 Respiratory 34 H 21 28 H Rate Blood Pressure 183/113 210/116 69/47 Blood Pressure [Left] O2 Sat by Pulse 99 87 Oximetry 04/06/17 04/06/1704/06/17 11:15 11:30 11:45 Temperature Pulse Rate 104 H 104 H 103 H Respiratory 28 H 32 H 27 H Rate Blood Pressure 131/75 109/70 113/69 Blood Pressure 140/83 [Left] O2 Sat by Pulse 96 98 Oximetry 04/06/17 04/06/17 04/06/17 12:00 12:15 12:30 Temperature Pulse Rate 103 H 102 H 101 H Respiratory 27 H 27 H 28 H Rate Blood Pressure 107/68 108/66 107/66 Blood Pressure [Left] O2 Sat by Pulse 95 Oximetry 04/06/17 04/06/17 04/06/17 12:45 13:00 13:15 Temperature Pulse Rate 98 H 97 H 93 H Respiratory 28 H 29 H 27 H Rate Blood Pressure 106/67 104/66 87/61 Blood Pressure [Left] O2 Sat by Pulse 98 98 Oximetry 04/06/17 04/06/17 04/06/17 13:30 13:45 14:00 Temperature Pulse Rate 93 H 91 H 90 Respiratory 34 H 28 H 26 H Rate Blood Pressure 82/57 84/58 75/53 Blood Pressure [Left] O2 Sat by Pulse 78 L Oximetry 04/06/17 04/06/17 04/06/17 14:15 14:30 14:45 Temperature Pulse Rate 96 H 92 H Respiratory 26 H 26 H 26 H Rate Blood Pressure 88/57 75/53 73/50 Blood Pressure [Left] O2 Sat by Pulse 99 98 Oximetry 04/06/17 04/06/17 04/06/17 15:00 15:14 15:15 Temperature Pulse Rate 88 86 Respiratory 29 H 27 H Rate Blood Pressure 72/49 69/47 Blood Pressure 68/45 [Left] O2 Sat by Pulse 92 Oximetry 04/06/17 04/06/17 04/06/17 15:30 15:45 15:55 Temperature Pulse Rate 89 85 85 Respiratory 26 H 28 H 22 Rate Blood Pressure 78/55 88/56 Blood Pressure 88/56 [Left] O2 Sat by Pulse Oximetry 04/06/17 16:00 Temperature Pulse Rate 85 Respiratory 27 H Rate Blood Pressure 93/56 Blood Pressure [Left] O2 Sat by Pulse Oximetry - Central Line Placement Right IJ Consent Obtained: emergent situation Time Out Performed: Yes Patient Placed on Monitor/Pulse Ox: Yes Prep: mask, gown, gloves Central Line Prep: Chlorhexidine scrub, sterile drapes applied Local Anesthesia Used: Lidocaine 1% Amount of Anesthesia Used (mls): 3 Ultrasound Used for Placement: Yes Central Line Lumen Inserted: triple Bloods Obtained for Lab: No Central Line Position: good blood return, all ports aspirated, flus, sutured in place with 2-0 Dressing Applied: Tegaderm Patient Tolerated Procedure: well Complications: none ED Medical Decision Making - Lab Data Result diagrams: 04/06/17 06:14 04/06/17 06:14 Critical care attestation.: If time is entered above; I have spent that time in minutes in the direct care of this critically ill patient, excluding procedure time. ED Disposition Clinical Impression: Hypotension Disposition: [id number] OP ADMIT IP TO THIS HOSP Is pt being admited?: Yes Condition: Critical
[2017-04-06 16:45] LABS: Calcium 8.7 mg/dL (8.4-10.2)
[2017-04-06] MEDS ORDERED: ASPIRIN PR SCH (16:54)
[2017-04-06 16:58] LABS: INR 2.22 (0.87-1.13)
[2017-04-06 16:59] LABS: Partial Thromboplastin Time 49.4 Sec. (24.2-36.6)
[2017-04-06 17:09] LABS: Potassium 5.5 mmol/L (3.6-5.0)
[2017-04-06 17:18] LABS: Hematocrit 38.2 % (35.5-45.6); Hemoglobin 12.1 gm/dl (11.8-15.2)
[2017-04-06] MEDS: Vasostrict 20 UNIT in NACL 0.9% 100 ML IV SCH (21:40)
[2017-04-06 21:56] LABS: Creatine Kinase MB 14.1 ng/mL (0.0-4.0)
[2017-04-06] MEDS: ALBURX 25% (ALBUMIN) IV SCH (23:49)
[2017-04-07] MEDS: Vasostrict 20 UNIT in NACL 0.9% 100 ML IV SCH ×3 (00:12→10:50)
[2017-04-07] MEDS: PROVENTIL IH SCH ×3 (04:49→11:45)
[2017-04-07 05:00] LABS: Hematocrit 30.5 % (35.5-45.6); Hemoglobin 9.7 gm/dl (11.8-15.2); Mean Corpuscular HGB Conc 32 % (32-34); Mean Corpuscular Hemoglobin 31 pg (28-32); Mean Corpuscular Volume 96 fl (84-94); Platelet Count 103 K/mm3 (140-440); Red Blood Count 3.16 M/mm3 (3.65-5.03); Red Cell Distribution Width 14.6 % (13.2-15.2)
[2017-04-07 05:04] LABS: Albumin 2.8 g/dL (3.9-5); Albumin/Globulin Ratio 1.6 %; Bilirubin,Total 1.9 mg/dL (0.1-1.2); Calcium 8.3 mg/dL (8.4-10.2); Total Protein 4.6 g/dL (6.3-8.2)
[2017-04-07 05:07] LABS: ISTAT Base Excess -22; ISTAT HCO3 8.4; ISTAT PCO2 28.6 (35-45); ISTAT PH 7.075 (7.35-7.45); ISTAT PO2 253 (80-105); ISTAT SO2 100; ISTAT TCO2 9
[2017-04-07 05:08] LABS: INR 10.86 (0.87-1.13); Partial Thromboplastin Time > 240.0 Sec. (24.2-36.6)
[2017-04-07 05:11] LABS: Potassium 7.5 mmol/L (3.6-5.0)
[2017-04-07] MEDS ORDERED: CALCIUM CHLORIDE 1,000 MG in NACL 0.9% 100 ML IV ONE (05:20)
[2017-04-07] MEDS ORDERED: SODIUM BICARBONATE IV ONE ×4 (05:20→17:18)
[2017-04-07] MEDS ORDERED: KIONEX PR ONE (05:21)
[2017-04-07] MEDS ORDERED: CALCIUM CHLORIDE IV ONE ×2 (05:59→17:18)
[2017-04-07 06:22] LABS: INR 15.22 (0.87-1.13)
[2017-04-07 06:27] LABS: Basophils % (Manual) 0 % (0.0-1.8); Blastocytes % (Manual) 0.5 %; Eosinophils % (Manual) 0 % (0.0-4.3); Total Cells Counted Percent 6.5
[2017-04-07 06:28] LABS: Anisocytosis 1+; Diff Status Complete; Platelet Estimate Appears Decreased
[2017-04-07 06:34] LABS: Partial Thromboplastin Time < 20.0 Sec. (24.2-36.6)
--- NOTE | 2017-04-07 07:46 | XRay Report ---
AP CHEST: HISTORY: Follow up respiratory failure The endotracheal tube, nasogastric tube and right IJ venous catheter remain in adequate position. Heart size is within normal limits. Mild central pulmonary venous congestion and mild bibasilar atelectatic changes are stable. The lungs are clear otherwise. IMPRESSION: No significant change.
--- NOTE | 2017-04-07 07:47 | XRay Report ---
AP CHEST: HISTORY: Line placement A right IJ venous catheter has been inserted since 04/06/17 at 0623 hours. A catheter terminates near the cavoatrial junction. No evidence for pneumothorax. Heart size remains within normal limits. Bilateral perihilar congestive changes or infiltrates have nearly resolved. Small right pleural effusion has also nearly resolved. There are mild bibasilar atelectatic changes. IMPRESSION: Right IJ venous catheter placement as described. No pneumothorax. Improvement in the bilateral infiltrates and right pleural effusion.
--- NOTE | 2017-04-07 08:06 | Progress Note ---
Assessment and Plan Impression: * BILLIE * Acute AL * shock * Acute resp failure * CHF * HTN urgency * metabolic acidosis * UTI Plan: * cr noted, billie due to hypoxia and hypoperfusion due to acute mi * will need associate software engineer for potassium and acidosis management if hemodynamically stable * ? IABP * keep map >65--continue vasopressor prn * avoid nephrotoxins * strict i/os * daily lytes * iv abx per primary team * poor prognosis, geovanna if cant tolerate HD due to poor cardiac perfusion Subjective Date of service: 04/07/17 Principal diagnosis: billie, ami Interval history: events noted, non responsive Objective - Exam Narrative Exam: General appearance: Present: severe distress (poorly responsive; responding to pain, no posturing, ), other (intubated and sedated) - EENT Eyes: Present: PERRL ENT: other - Neck Neck: Present: supple - Respiratory Respiratory effort: normal Respiratory: bilateral: rhonchi, wheezing - Cardiovascular Rhythm: regular Heart Sounds: Present: S1 & S2 - Abdominal General gastrointestinal: Present: soft, non-tender Male genitourinary: Present: deferred - Rectal Rectal Exam: deferred - Integumentary Integumentary: Present: clear, warm, dry - Musculoskeletal Musculoskeletal: strength equal bilaterally - Psychiatric Psychiatric: other (unresponsive) - Neurologic Neurologic: other (intubated and sedated) - Allied Health Allied health notes reviewed: nursing - Vital Signs Vital signs: Vital Signs - 12hr 04/06/17 04/06/17 04/06/17 20:15 20:30 20:45 Temperature Pulse Rate 86 85 Pulse Rate [ 85 Anterior Bilateral Throughout] Pulse Rate [ From Monitor] Respiratory 32 H 31 H 31 H Rate Respiratory 30 H Rate [Anterior Bilateral Throughout] Respiratory Rate [Chest] Blood Pressure 89/50 86/51 87/46 O2 Sat by Pulse 100 100 98 Oximetry 04/06/17 04/06/17 04/06/17 20:59 21:00 21:15 Temperature Pulse Rate 85 83 Pulse Rate [ 88 Anterior Bilateral Throughout] Pulse Rate [ From Monitor] Respiratory 29 H 33 H Rate Respiratory 30 H Rate [Anterior Bilateral Throughout] Respiratory Rate [Chest] Blood Pressure 81/49 90/49 O2 Sat by Pulse 100 100 Oximetry 04/06/17 04/06/17 04/06/17 21:25 21:30 21:45 Temperature Pulse Rate 84 83 83 Pulse Rate [ Anterior Bilateral Throughout] Pulse Rate [ From Monitor] Respiratory 32 H 31 H 32 H Rate Respiratory Rate [Anterior Bilateral Throughout] Respiratory Rate [Chest] Blood Pressure 84/51 86/50 85/50 O2 Sat by Pulse 99 Oximetry 04/06/17 04/06/17 04/06/17 22:00 22:15 22:30 Temperature Pulse Rate 82 81 80 Pulse Rate [ Anterior Bilateral Throughout] Pulse Rate [ From Monitor] Respiratory 31 H 32 H 32 H Rate Respiratory Rate [Anterior Bilateral Throughout] Respiratory 16 Rate [Chest] Blood Pressure 85/52 92/52 108/53 O2 Sat by Pulse 100 99 Oximetry 04/06/17 04/06/17 04/06/17 23:40 23:47 23:57 Temperature Pulse Rate 79 Pulse Rate [ 79 78 Anterior Bilateral Throughout] Pulse Rate [ From Monitor] Respiratory Rate Respiratory 31 H 30 H Rate [Anterior Bilateral Throughout] Respiratory Rate [Chest] Blood Pressure 133/60 O2 Sat by Pulse 98 Oximetry 04/07/17 04/07/17 04/07/17 00:00 00:27 00:30 Temperature 97.2 F L Pulse Rate 85 100 H Pulse Rate [ Anterior Bilateral Throughout] Pulse Rate [ 77 From Monitor] Respiratory 35 H 14 20 Rate Respiratory Rate [Anterior Bilateral Throughout] Respiratory Rate [Chest] Blood Pressure 108/55 144/108 O2 Sat by Pulse 99 100 100 Oximetry 04/07/17 04/07/17 04/07/17 00:41 00:50 01:00 Temperature Pulse Rate 95 H 102 H 74 Pulse Rate [ Anterior Bilateral Throughout] Pulse Rate [ From Monitor] Respiratory 20 15 32 H Rate Respiratory Rate [Anterior Bilateral Throughout] Respiratory Rate [Chest] Blood Pressure 142/97 134/101 114/54 O2 Sat by Pulse 100 100 Oximetry 04/07/17 04/07/17 04/07/17 01:10 01:20 01:30 Temperature Pulse Rate 75 73 73 Pulse Rate [ Anterior Bilateral Throughout] Pulse Rate [ From Monitor] Respiratory 32 H 31 H 31 H Rate Respiratory Rate [Anterior Bilateral Throughout] Respiratory Rate [Chest] Blood Pressure 118/54 114/53 116/52 O2 Sat by Pulse 92 94 95 Oximetry 04/07/17 04/07/17 04/07/17 01:40 01:50 02:00 Temperature Pulse Rate 72 72 73 Pulse Rate [ Anterior Bilateral Throughout] Pulse Rate [ From Monitor] Respiratory 25 H 21 19 Rate Respiratory Rate [Anterior Bilateral Throughout] Respiratory Rate [Chest] Blood Pressure 113/53 113/54 116/56 O2 Sat by Pulse 95 Oximetry 04/07/17 04/07/17 04/07/17 02:04 02:10 02:20 Temperature Pulse Rate 72 72 70 Pulse Rate [ Anterior Bilateral Throughout] Pulse Rate [ From Monitor] Respiratory 17 21 Rate Respiratory Rate [Anterior Bilateral Throughout] Respiratory Rate [Chest] Blood Pressure 109/55 100/52 O2 Sat by Pulse Oximetry 04/07/17 04/07/17 04/07/17 02:31 02:41 02:50 Temperature Pulse Rate 69 70 72 Pulse Rate [ Anterior Bilateral Throughout] Pulse Rate [ From Monitor] Respiratory 31 H 21 18 Rate Respiratory Rate [Anterior Bilateral Throughout] Respiratory Rate [Chest] Blood Pressure 100/52 100/52 101/54 O2 Sat by Pulse Oximetry 04/07/17 04/07/17 04/07/17 03:00 03:10 03:20 Temperature Pulse Rate 71 70 69 Pulse Rate [ Anterior Bilateral Throughout] Pulse Rate [ From Monitor] Respiratory 21 20 21 Rate Respiratory Rate [Anterior Bilateral Throughout] Respiratory Rate [Chest] Blood Pressure 111/58 113/56 112/43 O2 Sat by Pulse 100 Oximetry 04/07/17 04/07/17 04/07/17 03:30 03:40 03:50 Temperature Pulse Rate 67 66 66 Pulse Rate [ Anterior Bilateral Throughout] Pulse Rate [ From Monitor] Respiratory 21 14 18 Rate Respiratory Rate [Anterior Bilateral Throughout] Respiratory Rate [Chest] Blood Pressure 101/51 111/48 105/51 O2 Sat by Pulse Oximetry 04/07/17 04/07/17 04/07/17 04:00 04:06 04:10 Temperature 97.0 F L Pulse Rate 62 63 Pulse Rate [ Anterior Bilateral Throughout] Pulse Rate [ 63 From Monitor] Respiratory 17 14 Rate Respiratory Rate [Anterior Bilateral Throughout] Respiratory Rate [Chest] Blood Pressure 108/51 104/54 O2 Sat by Pulse 97 Oximetry 04/07/17 04/07/17 04/07/17 04:20 04:30 04:39 Temperature Pulse Rate 63 59 L 64 Pulse Rate [ Anterior Bilateral Throughout] Pulse Rate [ From Monitor] Respiratory 19 18 Rate Respiratory Rate [Anterior Bilateral Throughout] Respiratory Rate [Chest] Blood Pressure 103/51 105/46 105/46 O2 Sat by Pulse 96 Oximetry 04/07/17 04/07/17 04/07/17 04:40 04:49 04:50 Temperature Pulse Rate 60 66 Pulse Rate [ 64 Anterior Bilateral Throughout] Pulse Rate [ From Monitor] Respiratory 26 H 27 H Rate Respiratory 29 H Rate [Anterior Bilateral Throughout] Respiratory Rate [Chest] Blood Pressure 95/49 104/50 O2 Sat by Pulse Oximetry 04/07/17 04/07/17 04/07/17 04:59 05:00 05:10 Temperature Pulse Rate 66 65 Pulse Rate [ 67 Anterior Bilateral Throughout] Pulse Rate [ From Monitor] Respiratory 25 H 19 Rate Respiratory 31 H Rate [Anterior Bilateral Throughout] Respiratory Rate [Chest] Blood Pressure 102/48 97/50 O2 Sat by Pulse 92 Oximetry 04/07/17 04/07/17 04/07/17 05:20 05:30 05:40 Temperature Pulse Rate 65 64 64 Pulse Rate [ Anterior Bilateral Throughout] Pulse Rate [ From Monitor] Respiratory 27 H 24 22 Rate Respiratory Rate [Anterior Bilateral Throughout] Respiratory Rate [Chest] Blood Pressure 98/51 98/52 101/53 O2 Sat by Pulse Oximetry 04/07/17 04/07/17 04/07/17 05:50 06:00 06:10 Temperature Pulse Rate 64 67 67 Pulse Rate [ Anterior Bilateral Throughout] Pulse Rate [ From Monitor] Respiratory 22 27 H 27 H Rate Respiratory Rate [Anterior Bilateral Throughout] Respiratory Rate [Chest] Blood Pressure 104/52 100/52 105/54 O2 Sat by Pulse Oximetry 04/07/17 04/07/17 04/07/17 06:21 06:30 06:40 Temperature Pulse Rate 69 81 78 Pulse Rate [ Anterior Bilateral Throughout] Pulse Rate [ From Monitor] Respiratory 27 H 26 H 28 H Rate Respiratory Rate [Anterior Bilateral Throughout] Respiratory Rate [Chest] Blood Pressure 87/25 115/57 113/57 O2 Sat by Pulse 96 Oximetry 04/07/17 04/07/17 04/07/17 06:50 07:00 07:10 Temperature Pulse Rate 78 85 83 Pulse Rate [ Anterior Bilateral Throughout] Pulse Rate [ From Monitor] Respiratory 29 H 29 H 29 H Rate Respiratory Rate [Anterior Bilateral Throughout] Respiratory Rate [Chest] Blood Pressure 130/64 137/66 138/62 O2 Sat by Pulse Oximetry 04/07/17 04/07/17 07:20 07:30 Temperature Pulse Rate 83 82 Pulse Rate [ Anterior Bilateral Throughout] Pulse Rate [ From Monitor] Respiratory 29 H 28 H Rate Respiratory Rate [Anterior Bilateral Throughout] Respiratory Rate [Chest] Blood Pressure 135/66 128/63 O2 Sat by Pulse Oximetry - Lab 04/07/17 04:00 04/07/17 04:00 Most recent lab results Calcium 8.3 mg/dL (8.4-10.2) L 04/07/17 04:00 Urine Creatinine 34.2 mg/dL (0.1-20.0) H 04/06/17 16:04 Urine Sodium 97 mEq/L 04/06/17 16:04
--- NOTE | 2017-04-07 08:56 | Ultrasound Report ---
ULTRASOUND RENAL BILATERAL HISTORY: Renal failure. TECHNIQUE: transabdominal ultrasound with color Doppler interrogation. FINDINGS: The right kidney measures 10.1 x 4.0 x 4.9cm. Right renal cortex: 1.5cm. The left kidney measures 9.6 x 5.1 x 6.2cm. Left renal cortex: 1.1cm. The kidneys are normal size, contour and position. There is increased renal parenchymal echotexture bilaterally. Corticomedullary differentiation is preserved. No evidence for cystic disease, mass, nephrolithiasis, hydronephrosis or perinephric fluid. The views of the bladder and the region of the ureters appear normal. Small right pleural effusion is noted. IMPRESSION: Normal size but slightly echogenic kidneys consistent with nonspecific renal parenchymal disease. Small right pleural effusion.
[2017-04-07] MEDS: PROTONIX IV SCH (09:43)
[2017-04-07] MEDS: SODIUM BICARBONATE 150 MEQ in D5W 1,000 ML IV SCH (09:49)
[2017-04-07] MEDS ORDERED: MAXIPIME/NS 2 GM/100 ML 2 GM/100 ML BAG IV SCH (10:00)
[2017-04-07] MEDS ORDERED: D50W (25GM) Vial IV ONE (10:00)
[2017-04-07] MEDS ORDERED: VITAMIN K (ADULT ONLY) 10 MG in NACL 0.9% 50 ML IV SCH (10:00)
[2017-04-07] MEDS ORDERED: NACL 0.9% 500 ML 500 ML IV ONE (10:00)
[2017-04-07] MEDS ORDERED: VANCOMYCIN 1,250 MG in NACL 0.9% 250ML 250 ML IV ONE (10:00)
[2017-04-07] MEDS: ALBURX 25% (ALBUMIN) IV SCH (10:47)
--- NOTE | 2017-04-07 11:08 | Progress Note ---
Assessment and Plan 71 y/o male with recent STEMI in January, systolic HF (EF 35-40) admitted with acute respiratory failure, most likely from CHF exacerbation with pulmonary edema and hypertensive Emergency, now with hypotension, worsening renal function , shock liver and continued metabolic acidosis. 1. Multi-organ failure. Likely vargas of recovery from an injuries like this is very low. Patient is not coagulopathic as well with an INR of 15. Will do the following. A. Type and Cross and transfuse 4 units of FFP and 4 units of PRBC's B. Increase bicarb drip rate to 200/hr C. REgular Insulin 10 units and an amp of D50, repeat K at 1400 D. Lactic is up to 34, abdomen is hard, most likely ischemia, thrombotic vs lack of blood flow in wake of hypotension. Not a candidate for surgery or any imaging as moving patient increase his risk for cardiac arrest E. Continue medical management of heart disease F. Continue medical management of renal disease G. Patient is a full code, no family is present, most likely he will have cardiac arrest today, unsure if he will make it the next 24-48. CCT 31 minutes Subjective Date of service: 04/07/17 Principal diagnosis: rosalind, ami Interval history: Clinical status worsened yesterday afternoon. Became hypotensive requiring pressors. No urine output and found to have EKG changes consistent with DC. Currently maxed on vasopressin. No sedation. FiO2 down to 45% and PEEP is at 5. Became acidotic with a pH of less than 7. Lactic acid is now up to 34. Currently on bicarb drip. Objective Vital Signs - 12hr 04/06/17 04/06/17 04/06/17 23:40 23:47 23:57 Temperature Pulse Rate 79 Pulse Rate [ 79 78 Anterior Bilateral Throughout] Pulse Rate [ From Monitor] Respiratory Rate Respiratory 31 H 30 H Rate [Anterior Bilateral Throughout] Blood Pressure 133/60 O2 Sat by Pulse 98 Oximetry 04/07/17 04/07/17 04/07/17 00:00 00:27 00:30 Temperature 97.2 F L Pulse Rate 85 100 H Pulse Rate [ Anterior Bilateral Throughout] Pulse Rate [ 77 From Monitor] Respiratory 35 H 14 20 Rate Respiratory Rate [Anterior Bilateral Throughout] Blood Pressure 108/55 144/108 O2 Sat by Pulse 99 100 100 Oximetry 04/07/17 04/07/17 04/07/17 00:41 00:50 01:00 Temperature Pulse Rate 95 H 102 H 74 Pulse Rate [ Anterior Bilateral Throughout] Pulse Rate [ From Monitor] Respiratory 20 15 32 H Rate Respiratory Rate [Anterior Bilateral Throughout] Blood Pressure 142/97 134/101 114/54 O2 Sat by Pulse 100 100 Oximetry 04/07/17 04/07/17 04/07/17 01:10 01:20 01:30 Temperature Pulse Rate 75 73 73 Pulse Rate [ Anterior Bilateral Throughout] Pulse Rate [ From Monitor] Respiratory 32 H 31 H 31 H Rate Respiratory Rate [Anterior Bilateral Throughout] Blood Pressure 118/54 114/53 116/52 O2 Sat by Pulse 92 94 95 Oximetry 04/07/17 04/07/17 04/07/17 01:40 01:50 02:00 Temperature Pulse Rate 72 72 73 Pulse Rate [ Anterior Bilateral Throughout] Pulse Rate [ From Monitor] Respiratory 25 H 21 19 Rate Respiratory Rate [Anterior Bilateral Throughout] Blood Pressure 113/53 113/54 116/56 O2 Sat by Pulse 95 Oximetry 04/07/17 04/07/17 04/07/17 02:04 02:10 02:20 Temperature Pulse Rate 72 72 70 Pulse Rate [ Anterior Bilateral Throughout] Pulse Rate [ From Monitor] Respiratory 17 21 Rate Respiratory Rate [Anterior Bilateral Throughout] Blood Pressure 109/55 100/52 O2 Sat by Pulse Oximetry 04/07/17 04/07/17 04/07/17 02:31 02:41 02:50 Temperature Pulse Rate 69 70 72 Pulse Rate [ Anterior Bilateral Throughout] Pulse Rate [ From Monitor] Respiratory 31 H 21 18 Rate Respiratory Rate [Anterior Bilateral Throughout] Blood Pressure 100/52 100/52 101/54 O2 Sat by Pulse Oximetry 04/07/17 04/07/17 04/07/17 03:00 03:10 03:20 Temperature Pulse Rate 71 70 69 Pulse Rate [ Anterior Bilateral Throughout] Pulse Rate [ From Monitor] Respiratory 21 20 21 Rate Respiratory Rate [Anterior Bilateral Throughout] Blood Pressure 111/58 113/56 112/43 O2 Sat by Pulse 100 Oximetry 04/07/17 04/07/17 04/07/17 03:30 03:40 03:50 Temperature Pulse Rate 67 66 66 Pulse Rate [ Anterior Bilateral Throughout] Pulse Rate [ From Monitor] Respiratory 21 14 18 Rate Respiratory Rate [Anterior Bilateral Throughout] Blood Pressure 101/51 111/48 105/51 O2 Sat by Pulse Oximetry 04/07/17 04/07/17 04/07/17 04:00 04:06 04:10 Temperature 97.0 F L Pulse Rate 62 63 Pulse Rate [ Anterior Bilateral Throughout] Pulse Rate [ 63 From Monitor] Respiratory 17 14 Rate Respiratory Rate [Anterior Bilateral Throughout] Blood Pressure 108/51 104/54 O2 Sat by Pulse 97 Oximetry 04/07/17 04/07/17 04/07/17 04:20 04:30 04:39 Temperature Pulse Rate 63 59 L 64 Pulse Rate [ Anterior Bilateral Throughout] Pulse Rate [ From Monitor] Respiratory 19 18 Rate Respiratory Rate [Anterior Bilateral Throughout] Blood Pressure 103/51 105/46 105/46 O2 Sat by Pulse 96 Oximetry 04/07/17 04/07/17 04/07/17 04:40 04:49 04:50 Temperature Pulse Rate 60 66 Pulse Rate [ 64 Anterior Bilateral Throughout] Pulse Rate [ From Monitor] Respiratory 26 H 27 H Rate Respiratory 29 H Rate [Anterior Bilateral Throughout] Blood Pressure 95/49 104/50 O2 Sat by Pulse Oximetry 04/07/17 04/07/17 04/07/17 04:59 05:00 05:10 Temperature Pulse Rate 66 65 Pulse Rate [ 67 Anterior Bilateral Throughout] Pulse Rate [ From Monitor] Respiratory 25 H 19 Rate Respiratory 31 H Rate [Anterior Bilateral Throughout] Blood Pressure 102/48 97/50 O2 Sat by Pulse 92 Oximetry 04/07/17 04/07/17 04/07/17 05:20 05:30 05:40 Temperature Pulse Rate 65 64 64 Pulse Rate [ Anterior Bilateral Throughout] Pulse Rate [ From Monitor] Respiratory 27 H 24 22 Rate Respiratory Rate [Anterior Bilateral Throughout] Blood Pressure 98/51 98/52 101/53 O2 Sat by Pulse Oximetry 04/07/17 04/07/17 04/07/17 05:50 06:00 06:10 Temperature Pulse Rate 64 67 67 Pulse Rate [ Anterior Bilateral Throughout] Pulse Rate [ From Monitor] Respiratory 22 27 H 27 H Rate Respiratory Rate [Anterior Bilateral Throughout] Blood Pressure 104/52 100/52 105/54 O2 Sat by Pulse Oximetry 04/07/17 04/07/17 04/07/17 06:21 06:30 06:40 Temperature Pulse Rate 69 81 78 Pulse Rate [ Anterior Bilateral Throughout] Pulse Rate [ From Monitor] Respiratory 27 H 26 H 28 H Rate Respiratory Rate [Anterior Bilateral Throughout] Blood Pressure 87/25 115/57 113/57 O2 Sat by Pulse 96 Oximetry 04/07/17 04/07/17 04/07/17 06:50 07:00 07:10 Temperature Pulse Rate 78 85 83 Pulse Rate [ Anterior Bilateral Throughout] Pulse Rate [ From Monitor] Respiratory 29 H 29 H 29 H Rate Respiratory Rate [Anterior Bilateral Throughout] Blood Pressure 130/64 137/66 138/62 O2 Sat by Pulse Oximetry 04/07/17 04/07/17 04/07/17 07:20 07:30 07:40 Temperature Pulse Rate 83 82 82 Pulse Rate [ Anterior Bilateral Throughout] Pulse Rate [ From Monitor] Respiratory 29 H 28 H 28 H Rate Respiratory Rate [Anterior Bilateral Throughout] Blood Pressure 135/66 128/63 130/61 O2 Sat by Pulse Oximetry 04/07/17 04/07/17 04/07/17 07:50 08:00 08:48 Temperature Pulse Rate 82 84 Pulse Rate [ 85 86 Anterior Bilateral Throughout] Pulse Rate [ From Monitor] Respiratory 28 H 26 H Rate Respiratory 27 H 30 H Rate [Anterior Bilateral Throughout] Blood Pressure 127/61 129/63 O2 Sat by Pulse 95 Oximetry Constitutional: no acute distress, comatose Eyes: non-icteric ENT: oropharynx dry Neck: supple Ascultation: Bilateral: rales, rhonchi Percussion: Bilateral: not dull Cardiovascular: regular rate and rhythm Gastrointestinal: absent bowel sounds Extremities: no edema, cool Neurologic: unable to assess CBC and BMP: 04/07/17 04:00 04/07/17 04:00 ABG, PT/INR, D-dimer: ABG POC ABG pH 7.075 (7.35-7.45) L 04/07/17 04:37 POC ABG pCO2 28.6 (35-45) L 04/07/17 04:37 POC ABG pO2 253 (80-105) H 04/07/17 04:37 POC ABG HCO3 8.4 04/07/17 04:37 POC ABG Total CO2 9 04/07/17 04:37 POC ABG O2 Sat 100 04/07/17 04:37 PT/INR, D-dimer PT 116.9 Sec. (12.2-14.9) H 04/07/17 05:40 INR 15.22 (0.87-1.13) H* 04/07/17 05:40 Abnormal lab findings: Abnormal Labs 04/06/17 04/06/17 04/06/17 12:05 13:45 14:40 WBC RBC Hgb Hct MCV Plt Count Seg Neuts % (Manual) Lymphocytes % (Manual) Seg Neutrophils # Man Lymphocytes # (Manual) Monocytes # (Manual) PT INR APTT POC ABG pH 6.975 L POC ABG pCO2 45.9 H POC ABG pO2 240 H Potassium Chloride Carbon Dioxide BUN Creatinine Glucose POC Glucose 164 H Lactic Acid Calcium Total Bilirubin AST ALT Total Creatine Kinase CK-MB (CK-2) CK-MB (CK-2) Rel Index Troponin T 0.297 H* D Total Protein Albumin Urine Creatinine Crossmatch 04/06/17 04/06/17 04/06/17 16:04 16:25 21:16 WBC RBC Hgb Hct MCV Plt Count Seg Neuts % (Manual) Lymphocytes % (Manual) Seg Neutrophils # Man Lymphocytes # (Manual) Monocytes # (Manual) PT 25.7 H INR 2.22 H APTT 49.4 H POC ABG pH POC ABG pCO2 POC ABG pO2 Potassium Chloride Carbon Dioxide BUN Creatinine Glucose POC Glucose Lactic Acid Calcium Total Bilirubin AST ALT Total Creatine Kinase 203 H CK-MB (CK-2) 14.1 H CK-MB (CK-2) Rel Index 6.9 H Troponin T 0.466 H* D Total Protein Albumin Urine Creatinine 34.2 H Crossmatch 04/06/17 04/07/17 04/07/17 Unknown 04:00 04:00 WBC 32.0 H RBC 3.16 L Hgb 9.7 L Hct 30.5 L D MCV 96 H Plt Count 103 L Seg Neuts % (Manual) 85.0 H Lymphocytes % (Manual) 3.0 L Seg Neutrophils # Man 27.2 H Lymphocytes # (Manual) 1.0 L Monocytes # (Manual) 1.8 H PT 89.6 H INR 10.86 H* APTT > 240.0 H* POC ABG pH POC ABG pCO2 POC ABG pO2 Potassium 5.5 H D Chloride 94.0 L Carbon Dioxide 12 L D BUN 26 H Creatinine 2.6 H D Glucose 175 H POC Glucose Lactic Acid Calcium Total Bilirubin AST ALT Total Creatine Kinase CK-MB (CK-2) CK-MB (CK-2) Rel Index Troponin T Total Protein Albumin Urine Creatinine Crossmatch 1004/07/17 04/07/17 04:00 04:37 05:40 WBC RBC Hgb Hct MCV Plt Count Seg Neuts % (Manual) Lymphocytes % (Manual) Seg Neutrophils # Man Lymphocytes # (Manual) Monocytes # (Manual) PT 116.9 H INR 15.22 H* APTT < 20.0 L POC ABG pH 7.075 L POC ABG pCO2 28.6 L POC ABG pO2 253 H Potassium 7.5 H* D Chloride 88.0 L Carbon Dioxide 7 L* BUN 27 H Creatinine 3.6 H Glucose 221 H POC Glucose Lactic Acid Calcium 8.3 L Total Bilirubin 1.90 H AST 5008 H ALT 4115 H Total Creatine Kinase 279 H CK-MB (CK-2) 15.0 H CK-MB (CK-2) Rel Index 5.3 H Troponin T 0.552 H* Total Protein 4.6 L D Albumin 2.8 L Urine Creatinine Crossmatch 04/07/17 04/07/17 04/07/17 09:20 09:49 10:15 WBC RBC Hgb Hct MCV Plt Count Seg Neuts % (Manual) Lymphocytes % (Manual) Seg Neutrophils # Man Lymphocytes # (Manual) Monocytes # (Manual) PT INR APTT POC ABG pH POC ABG pCO2 POC ABG pO2 Potassium Chloride Carbon Dioxide BUN Creatinine Glucose POC Glucose 123 H Lactic Acid 34.10 H* Calcium Total Bilirubin AST ALT Total Creatine Kinase CK-MB (CK-2) CK-MB (CK-2) Rel Index Troponin T Total Protein Albumin Urine Creatinine Crossmatch See Detail
[2017-04-07 11:16] LABS: Calcium 8.2 mg/dL (8.4-10.2); Chloride 82.9 mmol/L (98-107)
[2017-04-07 11:20] LABS: Potassium 8.1 mmol/L (3.6-5.0)
--- NOTE | 2017-04-07 11:23 | Progress Note ---
Assessment and Plan Hold heparin and ASA in setting of coagulopathy. Await echo. Cont supportive management per primary/general assignment reporter. Pt on vasopressor. Consider addition of levophed if necessary for BP support. The patient has been seen in conjunction with Dr. Serrano who agrees with the assessment and plan of care. - Patient Problems (1) Septic shock Current Visit: Yes Status: Acute (2) STEMI (ST elevation myocardial infarction) Current Visit: Yes Status: Acute Qualifiers: Involved coronary artery: unspecified coronary artery Qualified Code(s): I21.3 - ST elevation (STEMI) myocardial infarction of unspecified site (3) Acute respiratory failure Current Visit: Yes Status: Acute Qualifiers: Respiratory failure complication: R (4) Multiorgan failure Current Visit: Yes Status: Acute (5) CAD (coronary artery disease) Current Visit: Yes Status: Chronic Qualifiers: Coronary Disease-Associated Artery/Lesion type: C [place] vs. transplanted heart: N Associated angina: A (6) Stented coronary artery Current Visit: Yes Status: Chronic (7) Acute on chronic systolic CHF (congestive heart failure) Current Visit: No Status: Acute (8) Ischemic cardiomyopathy Current Visit: Yes Status: Chronic (9) BILLIE (acute kidney injury) Current Visit: Yes Status: Acute (10) COPD (chronic obstructive pulmonary disease) Current Visit: Yes Status: Chronic Qualifiers: COPD type: C Chronic bronchitis type: C Emphysema type: E (11) Mesenteric ischemia, chronic Current Visit: Yes Status: Chronic (12) PVD (peripheral vascular disease) Current Visit: Yes Status: Chronic (13) Coagulopathy Current Visit: Yes Status: Acute Subjective Date of service: 04/07/17 Principal diagnosis: billie, ami Interval history: Pt remains intubated, unresponsive. Hypotensive, requiring vasopressor support. Objective Last Vital Signs Temp 97.0 F L 04/07/17 04:06 Pulse 86 04/07/17 08:48 Resp 30 H 04/07/17 08:48 BP 129/63 04/07/17 08:00 Pulse Ox 95 04/07/17 08:00 - Physical Examination General: Other (intubated, nonresponsive) HEENT: Positive: PERRL Neck: Positive: neck supple, trachea midline Cardiac: Positive: Reg Rate and Rhythm, S1/S2 Lungs: Positive: Decreased Breath Sounds, Ventilated Respirations Neuro: Positive: Other (intubated; nonresponsive) Abdomen: Positive: Active Bowel Sounds Skin: Positive: Clear. Negative: Rash, Wound Musculoskeletal: No Fluid Collection Extremities: Absent: edema - Labs and Meds Cardiac Enzymes 04/06/17 04/07/17 Range/Units 21:16 04:00 AST 5008 H (5-40) units/L CK-MB (CK-2) 14.1 H 15.0 H (0.0-4.0) ng/mL Coagulation 04/06/17 04/07/17 04/07/17 Range/Units 16:25 04:00 05:40 PT 25.7 H 89.6 H 116.9 H (12.2-14.9) Sec. INR 2.22 H 10.86 H* 15.22 H* (0.87-1.13) APTT 49.4 H > 240.0 H* < 20.0 L (24.2-36.6) Sec. CBC 04/06/17 04/07/17 Range/Units 16:50 04:00 WBC 32.0 H (4.5-11.0) K/mm3 RBC 3.16 L (3.65-5.03) M/mm3 Hgb 12.1 D 9.7 L (11.8-15.2) gm/dl Hct 38.2 D 30.5 L D (35.5-45.6) % Plt Count 152 103 L (140-440) K/mm3 Comprehensive Metabolic Panel 04/06/17 04/07/17 04/07/17 Range/Units Unknown 04:00 10:35 Sodium 141 140 141 (137-145) mmol/L Potassium 5.5 H D 7.5 H* D 8.1 H* (3.6-5.0) mmol/L Chloride 94.0 L 88.0 L 82.9 L (98-107) mmol/L Carbon Dioxide 12 L D 7 L* 7 L* (22-30) mmol/L BUN 26 H 27 H 26 H (9-20) mg/dL Creatinine 2.6 H D 3.6 H 4.0 H (0.8-1.5) mg/dL Glucose 175 H 221 H 537 H* (75-100) mg/dL Calcium 8.7 8.3 L 8.2 L (8.4-10.2) mg/dL AST 5008 H (5-40) units/L ALT 4115 H (7-56) units/L Alkaline Phosphatase 90 (35-129) units/L Total Protein 4.6 L D (6.3-8.2) g/dL Albumin 2.8 L (3.9-5) g/dL - Imaging and Cardiology EKG: report reviewed, image reviewed Echo: report reviewed (01/24/2017 showed EF 35-40%, global LV systolic function mild to moderately decreased, basal inferolateral and apical anterior wall segments hypokinetic) Cardiac cath: report reviewed (PCI of LAD on 01/24/2017) - Telemetry EKG Rhythm: Sinus Rhythm - EKG Sinus rhythms and dysrhythmias: sinus rhythm Myocardial infarction: anterior DE (acute or rec, lateral DE (acute or rece
[2017-04-07] MEDS ORDERED: D50W (25GM) Syringe IV PRN (12:52)
[2017-04-07 13:16] VITALS: BP 87/48
--- NOTE | 2017-04-07 13:35 | Event Note ---
EDMD CODE BLUE note Called to the ICU for CODE BLUE. Upon my arrival the patient was being bagged via ET tube by respiratory therapy and receiving chest compressions by staff. The patient's rhythm revealed PEA with a bradycardic rate. ACLS was continued. I was informed by nursing that the patient had a potassium of 8.0 this morning and vascular surgery had been consulted to place a Vas-Cath for hemodialysis. ACLS protocols were continued including administration of calcium chloride, sodium bicarbonate and albuterol 15 mg for hyperkalemia. At this time Dr. Duran is at the bedside. Case was discussed with Dr. Duran and the patient was left in his care to continue ACLS protocol
[2017-04-07] MEDS ORDERED: SIMPLE SYRUP FEEDTUBE PRN ×4 (14:29→14:47)
[2017-04-07] MEDS ORDERED: PANCREAZE DR 10,500 UNIT FEEDTUBE PRN ×2 (14:29→14:47)
[2017-04-07] MEDS ORDERED: SODIUM BICARBONATE FEEDTUBE PRN ×2 (14:29→14:47)
[2017-04-07] MEDS ORDERED: ADRENALIN ONE (17:18)
--- NOTE | 2017-04-07 18:06 | Death Note ---
Note Date of : 04/07/17 Time of : 13:25 Time Pronounced: 13:25
--- NOTE | 2017-04-07 18:07 | Death Summary ---
Summary - Providers Consults: 04/06/17 11:15 Consult to Physician [CONS] Routine Consulting Provider: KETRUAH MACHADO Reason For Exam: CHF, NSTEMI Place consult to:: DR. MACHADO Notified:: YES Phone number called:: If yes, spoke with:: NO Comment:: SAID TO LOCATE IN HOSPITAL WRONG NUMBER 04/06/17 11:17 Consult to Physician [CONS] Routine Consulting Provider: GAVIN QUINTANA Reason For Exam: rosalind Place consult to:: DR FINK Notified:: YES Phone number called:: Was contact made?: Yes If yes, spoke with:: NAILA Time called:: 12:49 04/07/17 14:30 Consult to Dietitian/Nutrition [CONS] Routine Physician Instructions: Assess nutrtn needs, initiate, modify, manage TF Reason For Exam: Reason for Consult: Write/Manage Tube Feeding Reason for Consult: Write/Manage Tube Feeding Attending: ASHA OREILLY MD - summary Date of admission: 04/06/17 09:00 Date of : 04/07/17
[2017-04-08] MEDS ORDERED: LEVAQUIN 750MG/150ML 750 MG/150 ML BAG IV SCH (10:00)
== END 2017-04-07 16:50 | DRG 871 ==
LOC: ED 05:45 → CC1 09:00
PROVIDERS: ADMIT Internal Medicine; ATTEND Internal Medicine
PROC: 5A1945Z Respiratory Ventilation, 24-96 Consecutive Hours (ICD-10-PCS; principal; 2017-04-06)
PROC: 0BH17EZ Insertion of Endotracheal Airway into Trachea, Via Natural or Artificial Opening (ICD-10-PCS; 2017-04-06)
PROC: 4A033R1 Measurement of Arterial Saturation, Peripheral, Percutaneous Approach (ICD-10-PCS; 2017-04-06)
DX: A41.9 Sepsis, unspecified organism (principal); J96.01 Acute respiratory failure with hypoxia; I50.23 Acute on chronic systolic (congestive) heart failure; G93.40 Encephalopathy, unspecified; J96.02 Acute respiratory failure with hypercapnia; R65.21 Severe sepsis with septic shock; I21.3 ST elevation (STEMI) myocardial infarction of unspecified site; N17.9 Acute kidney failure, unspecified; N39.0 Urinary tract infection, site not specified; I16.1 Hypertensive emergency; Z68.1 Body mass index [BMI] 19.9 or less, adult; I13.0 Hypertensive heart and chronic kidney disease with heart failure and stage 1 through stage 4 chronic kidney disease, or unspecified chronic kidney disease; E44.1 Mild protein-calorie malnutrition; E87.1 Hypo-osmolality and hyponatremia; D68.9 Coagulation defect, unspecified; F17.200 Nicotine dependence, unspecified, uncomplicated; Z79.82 Long term (current) use of aspirin; I25.10 Atherosclerotic heart disease of native coronary artery without angina pectoris; N18.2 Chronic kidney disease, stage 2 (mild); E87.6 Hypokalemia; E78.5 Hyperlipidemia, unspecified; I25.5 Ischemic cardiomyopathy; I73.9 Peripheral vascular disease, unspecified
CPT/HCPCS: 36415; 36600; 71010; 76770; 80048; 80053; 80061; 80307; 81001; 82140; 82550; 82553; 82570; 82803; 82962; 83880; 84300; 84484; 85007; 85014; 85018; 85025; 85049; 85520; 85610; 85730; 86706; 86803; 86850; 86900; 86901; 86920; 87040; 87070; 87086; 87205; 93005; 93010; 93306; 94002; 94003; 94640; 96361; 96365; 96372; 96375; 96376; 99291; A9270-GY; C9113; J0171; J0330; J0692; J1644; J1650; J1815; J1940; J1956; J2704; J2920; J2930; J3370; J3430; J3480; J7040; J7050; J7070; P9047